=== PATIENT | female | born 1950 | race Caucasian/White ===

== ENCOUNTER 2019-10-17 22:14 | Inpatient (IN) | payer MEDICARE, MEDICAID ==
[~2019-10-17] VITALS: Ht 157.5 cm; Wt 49.9 kg
[2019-10-17] MEDS ORDERED: methylPREDNISolone SOD SUCC 125 MG/2 ML IV ONE (22:30)
[2019-10-17] MEDS ORDERED: ALBUTEROL/IPRATROPIUM 2.5MG/0.5MG, 3 ML NPPB PRN (22:30)
[2019-10-17] MEDS ORDERED: ALBUTEROL/IPRATROPIUM 2.5MG/0.5MG, 3 ML NPPB ONE (22:30)
[2019-10-17] MEDS ORDERED: ALBUTEROL/IPRATROPIUM 2.5MG/0.5MG, 3 ML ONE (22:58)
[2019-10-17] MEDS ORDERED: PLEASE ENTER ALLERGIES MC SCH (23:00)
[2019-10-17] MEDS ORDERED: methylPREDNISolone SOD SUCC 125 MG/2 ML ONE (23:09)
--- NOTE | 2019-10-17 23:32 | NUR ---
PRIOR TO HEAD OF MUSIC IV BLEW WHILE FLUSHING. IV REMOVED WITH TIP INTACT. 3 FAILED IV ATTEMPTS. WILL CONTINUE TO WORK ON IV ACCESS.
[2019-10-17 23:52] LABS: BASOPHILS # (AUTO) 0.07 x10^3/uL (0-0.1); BASOPHILS % (AUTO) 1 % (0-1); EOSINOPHILS # (AUTO) 0.15 x10^3/uL (0-0.4); EOSINOPHILS % (AUTO) 1 % (1-7); LYMPHOCYTES # (AUTO) 0.68 x10^3/uL (1-3.4); LYMPHOCYTES % (AUTO) 6 % (22-44); MD NO; MEAN CORPUSCULAR HEMOGLOBIN 31.1 pg (27.0-34.8); MEAN CORPUSCULAR HGB CONC 32.3 g/dL (32.4-35.8); MEAN CORPUSCULAR VOLUME 96.3 fL (80-100); MEAN PLATELET VOLUME 9.4 fL (7.4-10.4); MONOCYTES # (AUTO) 0.76 x10^3/uL (0.2-0.8); MONOCYTES % (AUTO) 7 % (2-9); NEUTROPHILS # (AUTO) 10.02 x10^3/uL (1.8-6.8); NEUTROPHILS % (AUTO) 86 % (42-75); PLATELET COUNT 236 x10^3/uL (130-400); RED BLOOD COUNT 4.17 x10^6/uL (3.82-5.3); RED CELL DISTRIBUTION WIDTH 13.4 % (9.6-15.2)
[2019-10-18] LABS: ALBUMIN 3.7 g/dL (3.4-5.0); CALCIUM 9.4 mg/dL (8.5-10.1); CREATININE 0.48 mg/dL (0.55-1.02)
[2019-10-18 00:05] LABS: TROPONIN I < 0.015 ng/mL (0.000-0.045)
[2019-10-18 00:12] LABS: ANION GAP 6 mmol/L (5-15); CHLORIDE 93 mmol/L (98-107)
[2019-10-18] MEDS ORDERED: DOXYCYCLINE 100 MG in DEXTROSE 5% 250 ML IV ONE (01:30)
--- NOTE | 2019-10-18 01:30 | NUR ---
REPORT GIVEN TO ELISEO ON 4N.
[2019-10-18] MEDS ORDERED: LIDODERM 5% PATCH TD PRN (02:00)
[2019-10-18] MEDS ORDERED: ONDANSETRON ODT 4 MG PO PRN (02:00)
[2019-10-18] MEDS ORDERED: DOCUSATE 100 MG CAPSULE PO PRN (02:00)
[2019-10-18] MEDS: TEMAZEPAM 15 MG CAPSULE PO PRN ×2 (02:08→23:36)
[2019-10-18] MEDS: ENOXAPARIN 30 MG/0.3 ML SQ SCH (02:09)
[2019-10-18] MEDS: methylPREDNISolone SOD SUCC 40 MG/ML IVPush SCH ×4 (06:05→23:28)
[2019-10-18 06:33] VITALS: BP 93/60
[2019-10-18] MEDS: ALBUTEROL/IPRATROPIUM 2.5MG/0.5MG, 3 ML NPPB SCH ×4 (07:45→20:04)
[2019-10-18 08:33] LABS: MEAN CORPUSCULAR HGB CONC 32.1 g/dL (32.4-35.8); MEAN CORPUSCULAR VOLUME 96.6 fL (80-100); MEAN PLATELET VOLUME 9.6 fL (7.4-10.4); PLATELET COUNT 240 x10^3/uL (130-400); RED BLOOD COUNT 4.28 x10^6/uL (3.82-5.3); RED CELL DISTRIBUTION WIDTH 13.4 % (9.6-15.2)
[2019-10-18 08:41] LABS: ANION GAP 2 mmol/L (5-15); CALCIUM 9.1 mg/dL (8.5-10.1); CHLORIDE 96 mmol/L (98-107)
[2019-10-18 08:43] LABS: CREATININE 0.48 mg/dL (0.55-1.02)
[2019-10-18 08:50] LABS: BASOPHILS # (AUTO) 0.01 x10^3/uL (0-0.1); BASOPHILS % (AUTO) 0 % (0-1); EOSINOPHILS % (AUTO) 0 % (1-7); LYMPHOCYTES # (AUTO) 0.24 x10^3/uL (1-3.4); LYMPHOCYTES % (AUTO) 5 % (22-44); MD SCAN; MONOCYTES # (AUTO) 0.03 x10^3/uL (0.2-0.8); MONOCYTES % (AUTO) 1 % (2-9); NEUTROPHILS # (AUTO) 4.27 x10^3/uL (1.8-6.8); NEUTROPHILS % (AUTO) 94 % (42-75)
[2019-10-18] MEDS ORDERED: BENZONATATE 100 MG CAPSULE PO SCH (09:00)
[2019-10-18 13:35] VITALS: BP 106/73
[2019-10-18] MEDS: DOXYCYCLINE 100 MG in DEXTROSE 5% 250 ML IV SCH (13:37)
[2019-10-18] MEDS: GUAIFENESIN 200 MG TABLET PO SCH ×2 (17:53→23:28)
[2019-10-18 18:50] VITALS: BP 112/73
[2019-10-19 00:52] VITALS: BP 107/72
[2019-10-19] MEDS: ENOXAPARIN 30 MG/0.3 ML SQ SCH (01:43)
[2019-10-19] MEDS: DOXYCYCLINE 100 MG in DEXTROSE 5% 250 ML IV SCH ×3 (01:43→18:05)
[2019-10-19 04:53] LABS: BASOPHILS % (AUTO) 0 % (0-1); EOSINOPHILS # (AUTO) 0.03 x10^3/uL (0-0.4); EOSINOPHILS % (AUTO) 1 % (1-7); LYMPHOCYTES # (AUTO) 0.33 x10^3/uL (1-3.4); LYMPHOCYTES % (AUTO) 5 % (22-44); MD NO; MEAN CORPUSCULAR HEMOGLOBIN 30.9 pg (27.0-34.8); MEAN CORPUSCULAR HGB CONC 32.1 g/dL (32.4-35.8); MEAN CORPUSCULAR VOLUME 96.1 fL (80-100); MEAN PLATELET VOLUME 9.6 fL (7.4-10.4); MONOCYTES # (AUTO) 0.25 x10^3/uL (0.2-0.8); MONOCYTES % (AUTO) 4 % (2-9); NEUTROPHILS # (AUTO) 6.22 x10^3/uL (1.8-6.8); NEUTROPHILS % (AUTO) 91 % (42-75); PLATELET COUNT 233 x10^3/uL (130-400); RED BLOOD COUNT 3.81 x10^6/uL (3.82-5.3); RED CELL DISTRIBUTION WIDTH 13.6 % (9.6-15.2)
[2019-10-19 05:02] LABS: ANION GAP 2 mmol/L (5-15); CALCIUM 8.6 mg/dL (8.5-10.1); CHLORIDE 96 mmol/L (98-107)
[2019-10-19 05:03] LABS: CREATININE 0.49 mg/dL (0.55-1.02)
[2019-10-19] MEDS: methylPREDNISolone SOD SUCC 40 MG/ML IVPush SCH ×3 (05:47→17:19)
[2019-10-19] MEDS: GUAIFENESIN 200 MG TABLET PO SCH ×4 (05:47→21:11)
[2019-10-19 06:30] VITALS: BP 106/71
[2019-10-19] MEDS: ALBUTEROL/IPRATROPIUM 2.5MG/0.5MG, 3 ML NPPB SCH ×4 (06:35→18:50)
[2019-10-19 13:07] VITALS: BP 110/77
[2019-10-19] MEDS: ACETAMINOPHEN 325 MG TABLET PO PRN ×2 (13:37→21:12)
[2019-10-19] MEDS ORDERED: CEFTRIAXONE PMX 1GM/50ML 50 ML IV SCH (16:30)
[2019-10-19] MEDS: ALBUTEROL/IPRATROPIUM 2.5MG/0.5MG, 3 ML NPPB PRN ×2 (19:47→23:59)
[2019-10-19 20:23] VITALS: BP 116/83
[2019-10-19] MEDS: ENOXAPARIN 40 MG/0.4 ML SQ SCH (21:11)
[2019-10-20] MEDS: methylPREDNISolone SOD SUCC 40 MG/ML IVPush SCH ×4 (00:12→17:02)
[2019-10-20 00:15] VITALS: BP 105/71
[2019-10-20] MEDS: DOXYCYCLINE 100 MG in DEXTROSE 5% 250 ML IV SCH ×2 (02:17→14:24)
[2019-10-20] MEDS: ACETAMINOPHEN 325 MG TABLET PO PRN (02:18)
[2019-10-20] MEDS: ALBUTEROL/IPRATROPIUM 2.5MG/0.5MG, 3 ML NPPB SCH ×5 (04:43→18:43)
[2019-10-20 05:09] LABS: BASOPHILS % (AUTO) 0 % (0-1); EOSINOPHILS # (AUTO) 0.03 x10^3/uL (0-0.4); EOSINOPHILS % (AUTO) 0 % (1-7); LYMPHOCYTES % (AUTO) 3 % (22-44); MD NO; MEAN CORPUSCULAR HEMOGLOBIN 30.9 pg (27.0-34.8); MEAN CORPUSCULAR HGB CONC 31.9 g/dL (32.4-35.8); MEAN CORPUSCULAR VOLUME 96.6 fL (80-100); MEAN PLATELET VOLUME 9.2 fL (7.4-10.4); MONOCYTES # (AUTO) 0.25 x10^3/uL (0.2-0.8); MONOCYTES % (AUTO) 4 % (2-9); NEUTROPHILS # (AUTO) 6.65 x10^3/uL (1.8-6.8); NEUTROPHILS % (AUTO) 93 % (42-75); PLATELET COUNT 225 x10^3/uL (130-400); RED BLOOD COUNT 3.88 x10^6/uL (3.82-5.3); RED CELL DISTRIBUTION WIDTH 13.6 % (9.6-15.2)
[2019-10-20 05:18] LABS: CHLORIDE 98 mmol/L (98-107)
[2019-10-20 05:22] LABS: ALBUMIN 3.4 g/dL (3.4-5.0); ANION GAP 2 mmol/L (5-15); CALCIUM 8.9 mg/dL (8.5-10.1)
[2019-10-20] MEDS: GUAIFENESIN 200 MG TABLET PO SCH ×4 (05:58→20:43)
[2019-10-20 07:51] VITALS: BP 107/74
[2019-10-20] MEDS ORDERED: FUROSEMIDE 20 MG/2 ML IV ONE (11:00)
[2019-10-20] MEDS ORDERED: OMNIPAQUE 350 MG/ML, 100ML BOTTLE ONE (11:10)
[2019-10-20] MEDS: LORazepam 0.5MG TABLET PO PRN ×2 (11:28→18:33)
[2019-10-20 12:42] VITALS: BP 121/83
[2019-10-20 20:00] VITALS: BP 124/74
[2019-10-20] MEDS: TEMAZEPAM 15 MG CAPSULE PO PRN (20:43)
[2019-10-20] MEDS: ENOXAPARIN 40 MG/0.4 ML SQ SCH (20:43)
[2019-10-21] MEDS: methylPREDNISolone SOD SUCC 40 MG/ML IVPush SCH ×4 (00:08→17:14)
[2019-10-21 00:10] VITALS: BP 109/59
[2019-10-21] MEDS: DOXYCYCLINE 100 MG in DEXTROSE 5% 250 ML IV SCH ×2 (02:22→15:18)
[2019-10-21] MEDS: GUAIFENESIN 200 MG TABLET PO SCH ×4 (05:34→21:22)
[2019-10-21] MEDS: ALBUTEROL/IPRATROPIUM 2.5MG/0.5MG, 3 ML NPPB SCH ×4 (07:20→19:08)
[2019-10-21 07:57] LABS: MEAN CORPUSCULAR HEMOGLOBIN 31.1 pg (27.0-34.8); MEAN CORPUSCULAR HGB CONC 31.9 g/dL (32.4-35.8); MEAN CORPUSCULAR VOLUME 97.3 fL (80-100); MEAN PLATELET VOLUME 9.6 fL (7.4-10.4); PLATELET COUNT 221 x10^3/uL (130-400); RED BLOOD COUNT 4.02 x10^6/uL (3.82-5.3); RED CELL DISTRIBUTION WIDTH 13.8 % (9.6-15.2)
[2019-10-21 08:03] LABS: ANION GAP 2 mmol/L (5-15); CALCIUM 8.7 mg/dL (8.5-10.1); CHLORIDE 97 mmol/L (98-107); CREATININE 0.45 mg/dL (0.55-1.02)
[2019-10-21 08:59] VITALS: BP 114/82
[2019-10-21 09:06] LABS: BASOPHILS # (AUTO) 0.01 x10^3/uL (0-0.1); BASOPHILS % (AUTO) 0 % (0-1); EOSINOPHILS % (AUTO) 0 % (1-7); LYMPHOCYTES # (AUTO) 0.23 x10^3/uL (1-3.4); LYMPHOCYTES % (AUTO) 3 % (22-44); MD SCAN; MONOCYTES # (AUTO) 0.25 x10^3/uL (0.2-0.8); MONOCYTES % (AUTO) 3 % (2-9); NEUTROPHILS # (AUTO) 6.96 x10^3/uL (1.8-6.8); NEUTROPHILS % (AUTO) 93 % (42-75)
[2019-10-21] MEDS: LORazepam 0.5MG TABLET PO PRN (13:47)
[2019-10-21 15:54] VITALS: BP 118/79
[2019-10-21] MEDS: BUDESONIDE 0.5 MG/2 ML INHA INH SCH (19:08)
[2019-10-21 20:00] VITALS: BP 112/74
[2019-10-21] MEDS: ENOXAPARIN 40 MG/0.4 ML SQ SCH (21:22)
[2019-10-21] MEDS: TEMAZEPAM 15 MG CAPSULE PO PRN (23:28)
[2019-10-22] MEDS ORDERED: methylPREDNISolone SOD SUCC 40 MG/ML IVPush SCH
[2019-10-22] MEDS: TEMAZEPAM 15 MG CAPSULE PO PRN (01:07)
[2019-10-22 02:50] VITALS: BP 104/57
[2019-10-22] MEDS: DOXYCYCLINE 100 MG in DEXTROSE 5% 250 ML IV SCH ×2 (02:53→14:37)
[2019-10-22] MEDS: GUAIFENESIN 200 MG TABLET PO SCH ×4 (05:42→22:59)
[2019-10-22 08:15] VITALS: BP 119/83
[2019-10-22] MEDS: ALBUTEROL/IPRATROPIUM 2.5MG/0.5MG, 3 ML NPPB SCH ×4 (09:00→16:40)
[2019-10-22] MEDS: BUDESONIDE 0.5 MG/2 ML INHA INH SCH ×2 (09:00→21:00)
[2019-10-22] MEDS: methylPREDNISolone SOD SUCC 40 MG/ML IVPush SCH ×3 (10:34→23:00)
[2019-10-22 14:52] VITALS: BP 115/74
[2019-10-22 19:59] VITALS: BP 150/85
[2019-10-22] MEDS: LORazepam 0.5MG TABLET PO PRN (20:47)
[2019-10-22] MEDS: ENOXAPARIN 40 MG/0.4 ML SQ SCH (22:59)
[2019-10-23 00:52] VITALS: BP 112/76
[2019-10-23] MEDS: TEMAZEPAM 15 MG CAPSULE PO PRN ×2 (02:01→23:32)
[2019-10-23] MEDS: DOXYCYCLINE 100 MG in DEXTROSE 5% 250 ML IV SCH (02:12)
[2019-10-23] MEDS: methylPREDNISolone SOD SUCC 40 MG/ML IVPush SCH ×3 (03:20→16:05)
[2019-10-23] MEDS: GUAIFENESIN 200 MG TABLET PO SCH ×4 (05:58→21:37)
[2019-10-23] MEDS: BUDESONIDE 0.5 MG/2 ML INHA INH SCH ×2 (06:55→20:00)
[2019-10-23] MEDS: ALBUTEROL/IPRATROPIUM 2.5MG/0.5MG, 3 ML NPPB SCH ×4 (06:55→20:00)
[2019-10-23 08:04] VITALS: BP 111/74
[2019-10-23 12:55] VITALS: BP 144/92
[2019-10-23] MEDS: LORazepam 0.5MG TABLET PO PRN (18:24)
[2019-10-23 19:04] VITALS: BP 130/73
[2019-10-23] MEDS: ENOXAPARIN 40 MG/0.4 ML SQ SCH (21:37)
[2019-10-24] MEDS: TEMAZEPAM 15 MG CAPSULE PO PRN (01:07)
[2019-10-24] MEDS: methylPREDNISolone SOD SUCC 40 MG/ML IVPush SCH ×2 (01:07→09:07)
[2019-10-24 01:12] VITALS: BP 98/62
[2019-10-24] MEDS: GUAIFENESIN 200 MG TABLET PO SCH ×2 (05:17→11:40)
[2019-10-24] MEDS: BUDESONIDE 0.5 MG/2 ML INHA INH SCH (07:15)
[2019-10-24] MEDS: ALBUTEROL/IPRATROPIUM 2.5MG/0.5MG, 3 ML NPPB SCH ×2 (07:15→10:50)
[2019-10-24 09:11] VITALS: BP 120/82
[2019-10-24] MEDS ORDERED: METH4TAB2 PO (12:11)
[2019-10-24] MEDS ORDERED: UMEC62.5 INH (12:11)
[2019-10-24] MEDS ORDERED: ALBU90AE INH (12:11)
[2019-10-24 13:07] VITALS: BP 124/81
[2019-10-24] MEDS: LORazepam 0.5MG TABLET PO PRN (13:35)
== END 2019-10-24 16:12 | disposition home health service (06) | DRG 189 ==
LOC: ED 23:59 → EDIP 10-18 01:04 → 4NE 10-18 01:50 → 3N 10-19 13:02 → DCLOUNGE 10-24 15:49
PROVIDERS: ADMIT Family Medicine; ATTEND Hospitalist
DX: J96.21 Acute and chronic respiratory failure with hypoxia (principal); E43 Unspecified severe protein-calorie malnutrition; J44.0 Chronic obstructive pulmonary disease with (acute) lower respiratory infection; Z68.1 Body mass index [BMI] 19.9 or less, adult; J44.1 Chronic obstructive pulmonary disease with (acute) exacerbation; J96.10 Chronic respiratory failure, unspecified whether with hypoxia or hypercapnia; J20.9 Acute bronchitis, unspecified; E89.0 Postprocedural hypothyroidism; Z82.49 Family history of ischemic heart disease and other diseases of the circulatory system; Z87.891 Personal history of nicotine dependence; Z99.81 Dependence on supplemental oxygen; R00.0 Tachycardia, unspecified
CPT/HCPCS: 36415; 71045; 71275; 80048; 82040; 83735; 83880; 84100; 84484; 85025; 93005; 93306; 94640; 96374; G0378; J0696; J1650; J7060; J7620; J7626; Q9967; J1940; J2920; J2930

== ENCOUNTER 2020-02-27 10:32 | Observation (INO) | payer MEDICARE, MEDICAID ==
[~2020-02-27] VITALS: Ht 162.6 cm; Wt 47.4 kg
[~2020-02-27 10:32] MED LIST: ALBU90AE INH; METH4TAB2 PO; UMEC62.5 INH
[2020-02-27 11:27] LABS: BASOPHILS # (AUTO) 0.04 x10^3/uL (0-0.1); BASOPHILS % (AUTO) 0 % (0-1); EOSINOPHILS # (AUTO) 0.13 x10^3/uL (0-0.4); EOSINOPHILS % (AUTO) 1 % (1-7); LYMPHOCYTES # (AUTO) 0.71 x10^3/uL (1-3.4); LYMPHOCYTES % (AUTO) 6 % (22-44); MD NO; MEAN CORPUSCULAR HGB CONC 31.9 g/dL (32.4-35.8); MEAN CORPUSCULAR VOLUME 97.1 fL (80-100); MEAN PLATELET VOLUME 8.9 fL (7.4-10.4); MONOCYTES # (AUTO) 0.56 x10^3/uL (0.2-0.8); MONOCYTES % (AUTO) 5 % (2-9); NEUTROPHILS # (AUTO) 10.02 x10^3/uL (1.8-6.8); NEUTROPHILS % (AUTO) 88 % (42-75); PLATELET COUNT 220 x10^3/uL (130-400); RED BLOOD COUNT 4.34 x10^6/uL (3.82-5.3); RED CELL DISTRIBUTION WIDTH 13.9 % (9.6-15.2)
--- NOTE | 2020-02-27 11:27 | NUR ---
SOB FOR 2 DAYS BUT DISTRESSED THIS MORNING. STATES BETTER AFTER RECEIVING TX'S ENROUTE
[2020-02-27 12:11] LABS: ALBUMIN 3.7 g/dL (3.4-5.0); CALCIUM 9.1 mg/dL (8.5-10.1); CHLORIDE 97 mmol/L (98-107)
[2020-02-27 12:14] LABS: TROPONIN I 0.037 ng/mL (0.000-0.045)
[2020-02-27 12:21] LABS: ANION GAP 4 mmol/L (5-15)
[2020-02-27] MEDS ORDERED: LEVO100T5 PO (13:01)
--- NOTE | 2020-02-27 13:03 | NUR ---
PT AWARE OF INTENTION TO ADMIT. NO SOB AT THIS TIME. CONTINUE TO MONITOR.
[2020-02-27] MEDS ORDERED: ALBUTEROL SULFATE HOMEINH PRN (14:00)
[2020-02-27] MEDS ORDERED: LABETALOL 5MG/ML, 20ML IVPush PRN (14:00)
[2020-02-27] MEDS ORDERED: TRAZODONE 50MG TABLET PO PRN (14:00)
[2020-02-27] MEDS ORDERED: ONDANSETRON 2MG/ML, 2ML IVPush PRN (14:00)
[2020-02-27] MEDS ORDERED: DOCUSATE 100 MG CAPSULE PO PRN (14:00)
--- NOTE | 2020-02-27 14:00 | NUR ---
1400 SOLUMDEROL DOSE NOT GIVEN BECAUSE PT RECEIVED DOSE ENROUTE FROM [employer] ENGINEERING MANAGER
[2020-02-27 14:03] LABS: FREE T4 (FREE THYROXINE) 1.05 ng/dL (0.76-1.46)
[2020-02-27] MEDS ORDERED: ALBUTEROL/IPRATROPIUM 2.5MG/0.5MG, 3 ML ONE (14:31)
[2020-02-27] MEDS: ALBUTEROL/IPRATROPIUM 2.5MG/0.5MG, 3 ML NPPB SCH ×2 (14:35→21:00)
--- NOTE | 2020-02-27 14:56 | NUR ---
KENROY PARSONS TELEOE NUMBER [phone]
[2020-02-27] MEDS ORDERED: ALBUTEROL/IPRATROPIUM 2.5MG/0.5MG, 3 ML NPPB SCH (15:00)
--- NOTE | 2020-02-27 15:21 | NUR ---
RESTING WITH EYES CLOSED. NO COMPLAINTS. AWARE THAT ROOM ASSIGNMENT HAS BEEN MADE. REPORT TO AGATA PEACE PT TO BE TRANSPORTED.
--- NOTE | 2020-02-27 15:30 | NUR ---
REPORT TO AGATA PEACE PT TO BE TRANSPORTED TO FLOOR.
--- NOTE | 2020-02-27 15:37 | NUR ---
REPORT TO SIS GHOTRA
[2020-02-27] MEDS: methylPREDNISolone SOD SUCC 40 MG/ML IV SCH ×2 (15:38→22:00)
[2020-02-27] MEDS: ENOXAPARIN 40 MG/0.4 ML SQ SCH (17:54)
[2020-02-27 17:56] VITALS: BP 102/68
[2020-02-27 18:41] VITALS: BP 107/74
[2020-02-27] MEDS: BUDESONIDE 0.5 MG/2 ML INHA INH SCH (21:00)
[2020-02-27] MEDS: ACETAMINOPHEN 325 MG TABLET PO PRN (21:59)
[2020-02-27 22:06] LABS: MICROSCOPIC AUTO
[2020-02-28 01:27] VITALS: BP 93/57
[2020-02-28] MEDS: ALBUTEROL/IPRATROPIUM 2.5MG/0.5MG, 3 ML NPPB SCH ×3 (02:15→15:30)
[2020-02-28 05:19] LABS: ALBUMIN 3.2 g/dL (3.4-5.0); ANION GAP 4 mmol/L (5-15); CALCIUM 8.9 mg/dL (8.5-10.1); CHLORIDE 96 mmol/L (98-107)
[2020-02-28 05:20] LABS: BASOPHILS % (AUTO) 0 % (0-1); EOSINOPHILS % (AUTO) 0 % (1-7); LYMPHOCYTES % (AUTO) 5 % (22-44); MD NO; MEAN CORPUSCULAR HEMOGLOBIN 30.5 pg (27.0-34.8); MEAN CORPUSCULAR HGB CONC 31.6 g/dL (32.4-35.8); MEAN CORPUSCULAR VOLUME 96.5 fL (80-100); MEAN PLATELET VOLUME 9.5 fL (7.4-10.4); MONOCYTES # (AUTO) 0.15 x10^3/uL (0.2-0.8); MONOCYTES % (AUTO) 2 % (2-9); NEUTROPHILS # (AUTO) 6.21 x10^3/uL (1.8-6.8); NEUTROPHILS % (AUTO) 93 % (42-75); PLATELET COUNT 228 x10^3/uL (130-400); RED BLOOD COUNT 4.03 x10^6/uL (3.82-5.3); RED CELL DISTRIBUTION WIDTH 13.9 % (9.6-15.2)
[2020-02-28 05:23] LABS: ALANINE AMINOTRANSFERASE 15 U/L (12-78); ALKALINE PHOSPHATASE 68 U/L (45-117); BILIRUBIN,TOTAL 0.3 mg/dL (0.2-1.0); CREATININE 0.52 mg/dL (0.55-1.02); TOTAL PROTEIN 7.1 g/dL (6.4-8.2)
[2020-02-28] MEDS: methylPREDNISolone SOD SUCC 40 MG/ML IV SCH ×2 (05:31→14:32)
[2020-02-28] MEDS ORDERED: LEVOTHYROXINE 100 MCG TABLET PO SCH (06:00)
[2020-02-28 07:36] VITALS: BP 102/68
[2020-02-28] MEDS: BUDESONIDE 0.5 MG/2 ML INHA INH SCH (08:50)
[2020-02-28] MEDS ORDERED: UMECLIDINIUM BROMIDE HOMEINH SCH (09:00)
[2020-02-28] MEDS: ACETAMINOPHEN 325 MG TABLET PO PRN ×2 (09:16→14:32)
[2020-02-28 14:37] VITALS: BP 111/73
[2020-02-28] MEDS ORDERED: UMEC62.5 INH (15:11)
[2020-02-28] MEDS ORDERED: ALBU90AE INH (15:11)
[2020-02-28] MEDS ORDERED: PRED20TA PO (15:11)
[2020-02-28] MEDS ORDERED: LEVO100T5 PO (15:11)
[2020-02-28] MEDS: ENOXAPARIN 40 MG/0.4 ML SQ SCH (18:00)
[2020-02-28 18:23] VITALS: BP 113/77
== END 2020-02-28 18:46 | disposition home or self-care (01) ==
LOC: ED 11:35 → EDIP 12:56 → INTOOBSV 12:56 → 3N 17:42 → OBSVTOIN 02-28 14:11 → INTOOBSV 02-28 14:11
PROVIDERS: ADMIT Hospitalist; ATTEND Hospitalist
DX: J44.1 Chronic obstructive pulmonary disease with (acute) exacerbation (principal); J96.11 Chronic respiratory failure with hypoxia; E87.3 Alkalosis; E03.9 Hypothyroidism, unspecified; R63.4 Abnormal weight loss; Z87.891 Personal history of nicotine dependence; Z79.899 Other long term (current) drug therapy
CPT/HCPCS: 36415; 71045; 80048; 80053; 81001; 82040; 83735; 84100; 84439; 84484; 85025; 93005; 94640; 96372; 96374; 96376; 99285; G0378; J1650; J2920; J7626

== ENCOUNTER 2020-06-23 23:36 | Inpatient (IN) | payer MEDICARE, MEDICAID ==
[~2020-06-23] VITALS: Ht 157.5 cm; Wt 54.6 kg
[~2020-06-23 23:36] MED LIST changes: +ACID1TAB7 PO; +AMOX-291 PO; +ASPI-496 PO; +ATOR40TA78 PO; +DOXY100T PO; +LEVO100T5 PO; +PRED20TA PO
--- NOTE | 2020-06-23 23:37 | NUR ---
pt BIB [facility] after both home O2 concentrators in trailer went put. [facility] reports pt was found 82% RA. Placed on NC enroute and given albuterol and sats increased to 98%. Pt currently in decon room due to bed bugs infestation at home. Pt hx of COPD.
[2020-06-23] MEDS ORDERED: MELATONIN OTC PO (23:56)
[2020-06-24] MEDS ORDERED: SODIUM CHLORIDE FLUSH 10ML SYR IVF ONE
[2020-06-24] MEDS ORDERED: ALBUTEROL/IPRATROPIUM 2.5MG/0.5MG, 3 ML NPPB ONE
[2020-06-24] MEDS ORDERED: methylPREDNISolone SOD SUCC 125 MG/2 ML ONE
[2020-06-24] MEDS ORDERED: ALBUTEROL/IPRATROPIUM 2.5MG/0.5MG, 3 ML ONE
[2020-06-24] MEDS ORDERED: methylPREDNISolone SOD SUCC 125 MG/2 ML IV ONE
--- NOTE | 2020-06-24 00:29 | NUR ---
PT IV INFILTRATED. THIS RN PLACED NEW IV, PT MEDICATED PER DEC, LAYING ON GURNEY, DIFFICULTY BREATHING NOTED. PT SITTING UP IN GURNEY, 3-5 WORD SENTENCES SOME SOB NOTED. PLACED ON SPO2/BP/ECG MONITORING. APPEARS COMFORTABLE, GIVEN BLANKETS FOR COMFORT, WCTM. WAITING FOR TEST RESULTS.
[2020-06-24 00:35] LABS: BASOPHILS # (AUTO) 0.04 x10^3/uL (0-0.1); BASOPHILS % (AUTO) 0 % (0-1); EOSINOPHILS # (AUTO) 0.13 x10^3/uL (0-0.4); EOSINOPHILS % (AUTO) 1 % (1-7); LYMPHOCYTES # (AUTO) 0.99 x10^3/uL (1-3.4); LYMPHOCYTES % (AUTO) 8 % (22-44); MD NO; MEAN CORPUSCULAR HEMOGLOBIN 30.7 pg (27.0-34.8); MEAN CORPUSCULAR HGB CONC 31.3 g/dL (32.4-35.8); MEAN PLATELET VOLUME 9.2 fL (7.4-10.4); MONOCYTES # (AUTO) 0.81 x10^3/uL (0.2-0.8); MONOCYTES % (AUTO) 7 % (2-9); NEUTROPHILS # (AUTO) 10.02 x10^3/uL (1.8-6.8); NEUTROPHILS % (AUTO) 84 % (42-75); PLATELET COUNT 202 x10^3/uL (130-400); RED BLOOD COUNT 4.22 x10^6/uL (3.82-5.3); RED CELL DISTRIBUTION WIDTH 13.9 % (9.6-15.2)
[2020-06-24 01:22] LABS: ALBUMIN 3.5 g/dL (3.4-5.0); ANION GAP 5 mmol/L (5-15); CALCIUM 9.1 mg/dL (8.5-10.1); CHLORIDE 98 mmol/L (98-107); CREATININE 0.51 mg/dL (0.55-1.02)
[2020-06-24 01:26] LABS: TROPONIN I < 0.015 ng/mL (0.000-0.045)
[2020-06-24] MEDS ORDERED: ACETAMINOPHEN 325 MG TABLET PO PRN ×2 (02:00→07:30)
[2020-06-24] MEDS ORDERED: PROMETHAZINE 25 MG/ML, 1ML IM PRN (02:00)
[2020-06-24] MEDS ORDERED: ENOXAPARIN 40 MG/0.4 ML SQ SCH (02:00)
[2020-06-24] MEDS ORDERED: ENALAPRILAT 1.25 MG/ML, 2ML IVPush PRN (02:00)
--- NOTE | 2020-06-24 02:05 | NUR ---
pt provided crackers for comfort, nad, resting in gurney, waiting for admit bed, wctm.
--- NOTE | 2020-06-24 03:01 | NUR ---
REPORT CALLED TO FINA GHOTRA, NO CHANGE IN PT CONDITION, PT READY TO TRANSFER TO FLOOR. TM
[2020-06-24 03:44] VITALS: BP 116/75
[2020-06-24] MEDS: ALBUTEROL HFA 90 MCG/SPRAY INH SCH ×4 (05:39→20:25)
[2020-06-24] MEDS: HEPARIN 5,000 UNITS/ML, 1ML SQ SCH ×2 (08:30→20:26)
[2020-06-24] MEDS: SODIUM CHLORIDE 0.9% 1,000 ML IV SCH (08:42)
[2020-06-24 09:07] VITALS: BP 113/73
[2020-06-24 13:41] VITALS: BP 122/79
[2020-06-24 18:32] VITALS: BP 128/84
[2020-06-24] MEDS: ALBUTEROL HFA 90 MCG/SPRAY INH PRN ×2 (19:01→23:05)
[2020-06-25 00:01] VITALS: BP 109/77
[2020-06-25] MEDS: MELATONIN 5 MG TABLET PO PRN ×2 (02:14→22:20)
[2020-06-25] MEDS: ALBUTEROL HFA 90 MCG/SPRAY INH PRN ×3 (03:03→19:00)
[2020-06-25] MEDS: SODIUM CHLORIDE 0.9% 1,000 ML IV SCH ×2 (03:09→22:20)
[2020-06-25] MEDS: ALBUTEROL HFA 90 MCG/SPRAY INH SCH ×4 (06:10→22:20)
[2020-06-25 07:02] VITALS: BP 93/57
[2020-06-25 08:22] LABS: ANION GAP 3 mmol/L (5-15); CALCIUM 8.5 mg/dL (8.5-10.1); CHLORIDE 101 mmol/L (98-107)
[2020-06-25 08:24] LABS: CREATININE 0.33 mg/dL (0.55-1.02)
[2020-06-25 08:39] LABS: BASOPHILS # (AUTO) 0.03 x10^3/uL (0-0.1); BASOPHILS % (AUTO) 0 % (0-1); EOSINOPHILS % (AUTO) 2 % (1-7); LYMPHOCYTES # (AUTO) 0.96 x10^3/uL (1-3.4); LYMPHOCYTES % (AUTO) 14 % (22-44); MD NO; MEAN CORPUSCULAR HEMOGLOBIN 30.7 pg (27.0-34.8); MEAN CORPUSCULAR HGB CONC 31.1 g/dL (32.4-35.8); MEAN PLATELET VOLUME 9.6 fL (7.4-10.4); MONOCYTES % (AUTO) 10 % (2-9); NEUTROPHILS # (AUTO) 5.11 x10^3/uL (1.8-6.8); NEUTROPHILS % (AUTO) 74 % (42-75); PLATELET COUNT 173 x10^3/uL (130-400); RED BLOOD COUNT 3.61 x10^6/uL (3.82-5.3); RED CELL DISTRIBUTION WIDTH 14.2 % (9.6-15.2)
[2020-06-25] MEDS: HEPARIN 5,000 UNITS/ML, 1ML SQ SCH ×2 (08:41→19:21)
[2020-06-25 12:01] VITALS: BP 110/73
[2020-06-25] MEDS: CEFTRIAXONE PMX 1GM/50ML 50 ML IV SCH (12:25)
[2020-06-26 01:27] VITALS: BP 165/95
[2020-06-26] MEDS: ALBUTEROL HFA 90 MCG/SPRAY INH PRN ×2 (02:15→07:00)
[2020-06-26 02:20] VITALS: BP 132/78
[2020-06-26] MEDS: ALBUTEROL HFA 90 MCG/SPRAY INH SCH ×4 (06:12→20:10)
[2020-06-26 06:28] LABS: BASOPHILS # (AUTO) 0.02 x10^3/uL (0-0.1); BASOPHILS % (AUTO) 0 % (0-1); EOSINOPHILS # (AUTO) 0.16 x10^3/uL (0-0.4); EOSINOPHILS % (AUTO) 3 % (1-7); LYMPHOCYTES # (AUTO) 0.97 x10^3/uL (1-3.4); LYMPHOCYTES % (AUTO) 16 % (22-44); MD NO; MEAN CORPUSCULAR HGB CONC 31.5 g/dL (32.4-35.8); MEAN PLATELET VOLUME 9.6 fL (7.4-10.4); MONOCYTES # (AUTO) 0.57 x10^3/uL (0.2-0.8); MONOCYTES % (AUTO) 9 % (2-9); NEUTROPHILS # (AUTO) 4.47 x10^3/uL (1.8-6.8); NEUTROPHILS % (AUTO) 72 % (42-75); PLATELET COUNT 174 x10^3/uL (130-400); RED BLOOD COUNT 4.08 x10^6/uL (3.82-5.3); RED CELL DISTRIBUTION WIDTH 13.8 % (9.6-15.2)
[2020-06-26 06:37] LABS: ANION GAP 2 mmol/L (5-15); CALCIUM 9.2 mg/dL (8.5-10.1); CHLORIDE 100 mmol/L (98-107)
[2020-06-26 06:41] LABS: CREATININE 0.35 mg/dL (0.55-1.02)
[2020-06-26 07:22] VITALS: BP 97/63
[2020-06-26] MEDS: HEPARIN 5,000 UNITS/ML, 1ML SQ SCH ×2 (08:20→19:32)
[2020-06-26] MEDS: TIOTROPIUM BROMIDE 18 MCG/INH INH SCH (10:00)
[2020-06-26] MEDS: FLUTICASONE/VILANTEROL 100-25MCG/INH INH SCH (12:00)
[2020-06-26 12:12] VITALS: BP 131/83
[2020-06-26] MEDS: CEFTRIAXONE PMX 1GM/50ML 50 ML IV SCH (16:32)
[2020-06-26 19:26] VITALS: BP 132/88
[2020-06-26] MEDS: SODIUM CHLORIDE 0.9% 1,000 ML IV SCH (19:33)
[2020-06-27 00:38] VITALS: BP 116/81
[2020-06-27] MEDS: ALBUTEROL HFA 90 MCG/SPRAY INH SCH ×4 (05:02→20:34)
[2020-06-27] MEDS: TIOTROPIUM BROMIDE 18 MCG/INH INH SCH (07:05)
[2020-06-27] MEDS: FLUTICASONE/VILANTEROL 100-25MCG/INH INH SCH (07:05)
[2020-06-27] MEDS: HEPARIN 5,000 UNITS/ML, 1ML SQ SCH ×2 (07:46→20:00)
[2020-06-27 07:58] VITALS: BP 106/75
[2020-06-27 13:17] VITALS: BP 109/75
[2020-06-27] MEDS: SODIUM CHLORIDE 0.9% 1,000 ML IV SCH (16:08)
[2020-06-27] MEDS: CEFTRIAXONE PMX 1GM/50ML 50 ML IV SCH (16:08)
[2020-06-27 20:03] VITALS: BP 102/69
[2020-06-27] MEDS: MELATONIN 5 MG TABLET PO PRN (23:31)
[2020-06-28] MEDS: ALBUTEROL HFA 90 MCG/SPRAY INH PRN (00:33)
[2020-06-28 00:34] VITALS: BP 97/68
[2020-06-28] MEDS: ALBUTEROL HFA 90 MCG/SPRAY INH SCH ×5 (04:54→19:14)
[2020-06-28 07:01] VITALS: BP 108/77
[2020-06-28] MEDS: FLUTICASONE/VILANTEROL 100-25MCG/INH INH SCH (07:05)
[2020-06-28] MEDS: TIOTROPIUM BROMIDE 18 MCG/INH INH SCH (07:05)
[2020-06-28] MEDS: methylPREDNISolone SOD SUCC 40 MG/ML IV SCH (09:15)
[2020-06-28] MEDS: HEPARIN 5,000 UNITS/ML, 1ML SQ SCH ×2 (09:16→21:03)
[2020-06-28 13:14] VITALS: BP 100/69
[2020-06-28] MEDS: AZITHROMYCIN 500 MG TABLET PO SCH (17:03)
[2020-06-28 19:01] VITALS: BP 107/71
[2020-06-29] MEDS: ALBUTEROL HFA 90 MCG/SPRAY INH PRN ×2 (00:18→04:00)
[2020-06-29] MEDS: MELATONIN 5 MG TABLET PO PRN (00:31)
[2020-06-29 00:47] VITALS: BP 93/61
[2020-06-29] MEDS: ALBUTEROL HFA 90 MCG/SPRAY INH SCH ×3 (06:00→15:00)
[2020-06-29] MEDS ORDERED: LEVOTHYROXINE 100 MCG TABLET PO SCH (06:00)
[2020-06-29 07:26] VITALS: BP 102/73
[2020-06-29] MEDS: AZITHROMYCIN 500 MG TABLET PO SCH (08:05)
[2020-06-29] MEDS: HEPARIN 5,000 UNITS/ML, 1ML SQ SCH (08:06)
[2020-06-29] MEDS: methylPREDNISolone SOD SUCC 40 MG/ML IV SCH (08:06)
[2020-06-29] MEDS: TIOTROPIUM BROMIDE 18 MCG/INH INH SCH (08:28)
[2020-06-29] MEDS: FLUTICASONE/VILANTEROL 100-25MCG/INH INH SCH (08:28)
[2020-06-29] MEDS ORDERED: TIOT18CA INH (12:01)
[2020-06-29] MEDS ORDERED: PRED20TA PO (12:01)
[2020-06-29] MEDS ORDERED: FLUT1BLS INH (12:01)
[2020-06-29] MEDS ORDERED: AZIT500T10 PO (12:01)
== END 2020-06-29 18:16 | disposition home or self-care (01) | DRG 189 ==
LOC: ED 06-24 02:20 → EDIP 06-24 02:21 → 3N 06-24 03:39 → OBSVTOIN 06-25 13:57
PROVIDERS: ADMIT Family Medicine; ATTEND Hospitalist
DX: J96.21 Acute and chronic respiratory failure with hypoxia (principal); J44.1 Chronic obstructive pulmonary disease with (acute) exacerbation; J96.22 Acute and chronic respiratory failure with hypercapnia; F17.210 Nicotine dependence, cigarettes, uncomplicated; B88.8 Other specified infestations; D72.829 Elevated white blood cell count, unspecified; E89.0 Postprocedural hypothyroidism; F41.9 Anxiety disorder, unspecified
CPT/HCPCS: 36415; 36600; 71045; 80048; 82040; 82803; 83880; 84439; 84443; 84484; 85025; 93005; 94640; 94664; 99406; G0378; J0696; J1644; J1650; J2920; J2930; J7030

== ENCOUNTER 2020-09-04 14:15 | Emergency (ER) | payer MEDICARE, MEDICAID ==
[~2020-09-04] VITALS: Ht 157.5 cm; Wt 50.0 kg
[~2020-09-04 14:15] MED LIST changes: +AZIT500T10 PO; +FLUT1BLS INH; +MELATONIN OTC PO; +TIOT18CA INH
--- NOTE | 2020-09-04 14:20 | NUR ---
pt BIB [facility] fom home to have O2 set up. per report, pt is on chronic O2 at 4L via NC at home and her insurance changed last week, the Oxygen company took all her equipment today and her son sent her here for more O2. pt has no physical c/o
--- NOTE | 2020-09-04 15:30 | NUR ---
meal tray delivered per ok from Dr. Nagel pt sitting up on [facility] in no apparent distress
--- NOTE | 2020-09-04 16:24 | NUR ---
tech at bedside to RA test for O2 pt has been assisted to BR via WC per request
--- NOTE | 2020-09-04 17:10 | NUR ---
no changes. pt sitting up on gurney in position of comfort watching TV. awaiting O2 delivery
--- NOTE | 2020-09-04 17:45 | NUR ---
pt has been assisted to BR and back to bed. tolerated fair pt still awaiting O2 delivery. per SW delivery is estimated in 2-4 hours. pt updated on POC
--- NOTE | 2020-09-04 18:02 | NUR ---
pt to go to [address] [place] [address] in [place] upon O2 delivery
--- NOTE | 2020-09-04 18:02 | NUR ---
dinner tray delivered
--- NOTE | 2020-09-04 18:46 | NUR ---
pt O2 tanks and concentrator have been delivered to bedside and pt teaching has been done by credit representative. attempted to call pt son to come pick her up. pt son states that he "doesn't have a car" and wants her to go home in a cab pt [facility] residence contacted and notified of pending D/C
[2020-09-04 19:08] VITALS: BP 130/75
== END 2020-09-04 19:11 ==
LOC: ED 15:31
DX: J96.11 Chronic respiratory failure with hypoxia (principal); J44.9 Chronic obstructive pulmonary disease, unspecified; E03.9 Hypothyroidism, unspecified
CPT/HCPCS: 99283

== ENCOUNTER 2020-09-18 18:04 | Emergency (ER) | payer MEDICARE, MEDICAID ==
[~2020-09-18] VITALS: Ht 157.5 cm; Wt 50.0 kg
--- NOTE | 2020-09-18 18:52 | NUR ---
SUMAN SON [phone]
[2020-09-18 19:01] LABS: ALBUMIN 3.2 g/dL (3.4-5.0); ANION GAP 4 mmol/L (5-15); CALCIUM 8.6 mg/dL (8.5-10.1); CHLORIDE 100 mmol/L (98-107); CREATININE 0.48 mg/dL (0.55-1.02)
[2020-09-18 19:07] LABS: BASOPHILS % (AUTO) 1 % (0-1); EOSINOPHILS % (AUTO) 3 % (1-7); LYMPHOCYTES % (AUTO) 13 % (22-44); MEAN CORPUSCULAR HEMOGLOBIN 31.3 pg (27.0-34.8); MEAN CORPUSCULAR HGB CONC 32.8 g/dL (32.4-35.8); MEAN PLATELET VOLUME 10.1 fL (7.4-10.4); MONOCYTES % (AUTO) 10 % (2-9); NEUTROPHILS % (AUTO) 72 % (42-75); PLATELET COUNT 209 x10^3/uL (130-400); RED BLOOD COUNT 3.97 x10^6/uL (3.82-5.3); RED CELL DISTRIBUTION WIDTH 13.4 % (9.6-15.2)
[2020-09-18 19:11] LABS: MD NO
--- NOTE | 2020-09-18 21:05 | NUR ---
CYLINDER DIE MACHINE HELPER: PT. TO ROOM FROM LOBBY AT THIS TIME.
[2020-09-18] MEDS ORDERED: CEFAZOLIN PMX 1GM/50ML 50 ML IVPB ONE (21:30)
[2020-09-18] MEDS ORDERED: SODIUM CHLORIDE FLUSH 10ML SYR IVF ONE (21:30)
[2020-09-18] MEDS ORDERED: VANCOMYCIN PER PHARMACY MC ONE (21:30)
[2020-09-18] MEDS ORDERED: ONDANSETRON 2MG/ML, 2ML IVPush ONE (21:30)
[2020-09-18] MEDS ORDERED: SODIUM CHLORIDE 0.9% 1,000ML IVBOLUS ONE (21:30)
[2020-09-18] MEDS ORDERED: VANCOMYCIN 1,200 MG in SODIUM CHLORIDE 0.9% 250 ML IV ONE (22:00)
--- NOTE | 2020-09-18 22:06 | NUR ---
PT PLACED ON WAFFEL MATTRESS.
[2020-09-18] MEDS ORDERED: CEFAZOLIN PMX 1GM/50ML 50 ML ONE (22:10)
[2020-09-18] MEDS ORDERED: ONDANSETRON 2MG/ML, 2ML ONE (22:10)
[2020-09-18] MEDS ORDERED: MORPHINE SULFATE 4 MG/ML, 1ML ONE ×2 (22:10→22:52)
[2020-09-18] MEDS: MORPHINE SULFATE 4 MG/ML, 1ML IV PRN ×2 (22:13→22:54)
--- NOTE | 2020-09-18 22:27 | NUR ---
KENROY WILL, DAREK TO UPDATE. [phone].
[2020-09-18 23:00] LABS: MICROSCOPIC INDICATED
[2020-09-19] MEDS ORDERED: NEOSPORIN OINT. PKT 1 PACKET ONE (01:27)
--- NOTE | 2020-09-19 04:07 | NUR ---
SHIPPING ASSOCIATE: CALL PLACED TO PT. SON; NO ANSWER. MESSAGE LEFT WITH SON TO CALL ED BACK SO WE CAN ENSURE SAFE D/C HOME FOR PT.
--- NOTE | 2020-09-19 04:25 | NUR ---
THIS PT IS A POOR HISTORIAN, STATES SHE DOESN'T KNOW HER SON'S PHONE NUMBER OR HER OWN ADDRESS. THIS RN PROVIDED EXTENSIVE PERINEAL AND WOUND CARE INCLUDING WOUND CLEANSER, BACITRAICIN, BARRIER CREAM, AND DRESSING. WOUND CARE FOLLOW UP FAXED TO [facility]. PT GIVEN EXTENSIVE EDUCATION ABOUT ALTERNATING SIDES USING PILLOW WHEN LAYING IN BED TO MOVE PRESSURE AND TO GET UP AND WALK MORE OFTEN DURING THE DAY. PT HAS REMAINED WITH BEDRAILS UP X2 AND CALL LIGHT IN REACH.
--- NOTE | 2020-09-19 04:53 | NUR ---
PT SLEEPING, VISIBLE CHEST RISE AND FALL.
--- NOTE | 2020-09-19 05:05 | NUR ---
ANNALISA THE SON CALLED BACK TO CONFIRM PATIENTS HOME ADRESS IN ADDTION HE IS HOME AND WILL BE ABLE TO LET HER IN. YANNA HINKLE CAB VOUCHER PROVIDED
[2020-09-19 05:18] VITALS: BP 99/61
== END 2020-09-19 05:20 | disposition home or self-care (01) ==
LOC: ED 09-19 00:15
DX: T21.55XA Corrosion of first degree of buttock, initial encounter (principal); T21.54XA Corrosion of first degree of lower back, initial encounter; T32.0 Corrosions involving less than 10% of body surface; J44.9 Chronic obstructive pulmonary disease, unspecified; E03.9 Hypothyroidism, unspecified; Z87.891 Personal history of nicotine dependence; X08.8XXA Exposure to other specified smoke, fire and flames, initial encounter; Y93.89 Activity, other specified; Y92.89 Other specified places as the place of occurrence of the external cause; Y99.8 Other external cause status
CPT/HCPCS: 16020; 36415; 80048; 81001; 82040; 85025; 87040; 93005; 96365; 96367; 96375; 99285; J0690; J2270; J2405; J3370; J7030; J7050

== ENCOUNTER 2021-01-16 13:42 | Inpatient (IN) | payer MEDICARE, MEDICAID ==
[~2021-01-16] VITALS: Ht 152.4 cm; Wt 47.8 kg
[~2021-01-16 13:42] MED LIST changes: +ETOMIDATE 20 MG/10 ML ONE; +SUCCINYLCHOLINE 20 MG/ML, 10ML ONE
--- NOTE | 2021-01-16 13:42 | NUR ---
70 YR OLD FEMALE ARRIVED VIA EMS. PER REPORT PT LAST SEEN NORMAL 2 DAYS AGO. PT ALTERED. GCS 3, GUPPY BREATHING. PT RECEIVED 450CC NS INFORMATION SYSTEMS SECURITY ANALYST WAS ON HOME O2 AT 3L NC. PT WITH IV IN RFA. BS 166. PT WITH FEET PURPLE/MOTTELING. PT WITH STRONG URINE AND FECES SMELL, INCONTINENT. PT WITH WOUNDS TO COCCYX AND BACK. SKIN ON LEFT HIP LEATHERY.
--- NOTE | 2021-01-16 13:52 | NUR ---
DR SCHRADER AT BEDSIDE FOR INTUBATION.
[2021-01-16] MEDS ORDERED: PROPOFOL 100 ML IV PRN ×2 (14:00→15:30)
[2021-01-16] MEDS ORDERED: ETOMIDATE 20 MG/10 ML IV ONE (14:00)
[2021-01-16] MEDS ORDERED: SODIUM CHLORIDE FLUSH 10ML SYR IVF ONE (14:00)
[2021-01-16] MEDS ORDERED: SUCCINYLCHOLINE 20 MG/ML, 10ML IVPush ONE (14:00)
[2021-01-16 14:34] LABS: MEAN CORPUSCULAR HGB CONC 32.9 g/dL (32.4-35.8); MEAN PLATELET VOLUME 8.8 fL (7.4-10.4); PLATELET COUNT 407 x10^3/uL (130-400); RED BLOOD COUNT 4.77 x10^6/uL (3.82-5.3)
[2021-01-16 14:46] LABS: ALANINE AMINOTRANSFERASE 12 U/L (12-78); ALBUMIN 2.7 g/dL (3.4-5.0); ANION GAP 7 mmol/L (5-15); CALCIUM 8.8 mg/dL (8.5-10.1); CHLORIDE 108 mmol/L (98-107); CREATININE 0.81 mg/dL (0.55-1.02)
--- NOTE | 2021-01-16 14:47 | NUR ---
PORTABLE CXR COMPLETED. DR SCHRADER AWARE OF OG DRAINING BROWN LIQUID.
[2021-01-16 14:50] LABS: ALKALINE PHOSPHATASE 78 U/L (45-117); BILIRUBIN,TOTAL 0.5 mg/dL (0.2-1.0); TOTAL PROTEIN 6.6 g/dL (6.4-8.2); TROPONIN I < 0.015 ng/mL (0.000-0.045)
[2021-01-16 15:08] LABS: MD YES
--- NOTE | 2021-01-16 15:17 | NUR ---
LITER OF NS STARTED BY EMS, COMPLETED. PT TO CT VIA RHENRIETTA
[2021-01-16] MEDS ORDERED: PHARMACY MAY ADJ FOR RENAL FX MC SCH (15:30)
[2021-01-16 15:32] LABS: INTERNATIONAL NORMALIZED RATIO 1.37 (0.93-1.1); PROTHROMBIN TIME 14.6 Seconds (9.6-11.5)
[2021-01-16 15:33] LABS: LYMPH#(MANUAL) 0.18 x10^3/uL (1-3.4); LYMPHS% (MANUAL) 1 % (22-44)
[2021-01-16 15:34] LABS: <PLATELET ESTIMATE> INCREASED; <PLT MORPHOLOGY> NORMAL PLT MORPH; <RBC MORPHOLOGY> NORMAL; MONOS#(MANUAL) 0.73 x10^3/uL (0.3-2.7); MONOS% (MANUAL) 4 % (2-9); SEGS% (MANUAL) 95 % (42-75)
--- NOTE | 2021-01-16 15:46 | NUR ---
PT RETURN TO ROOM, DR WEBB AT BEDSIDE TO EVAL PT. DISCUSSED POC. PT SKIN. ST PER MONITOR.
[2021-01-16] MEDS ORDERED: VANCOMYCIN PER PHARMACY MC ONE (16:00)
[2021-01-16] MEDS ORDERED: VANCOMYCIN 900 MG in SODIUM CHLORIDE 0.9% 100 ML IV ONE (16:00)
[2021-01-16] MEDS ORDERED: PIPERACILLIN/TAZO/PMX 4.5GM 100 ML IVPB ONE (16:00)
[2021-01-16 16:01] LABS: TRIGLYCERIDES 169 mg/dL (50-200)
[2021-01-16 16:03] LABS: CREATINE KINASE, TOTAL 63 U/L (26-192)
[2021-01-16] MEDS ORDERED: PIPERACILLIN/TAZO/PMX 3.375GM 50 ML ONE ×2 (16:16→16:17)
--- NOTE | 2021-01-16 16:25 | NUR ---
URINE COLLECTED FOR DIAMOND CATHETER BAG, WALKED TO LAB. PT ON WAFFLE MATTRESS. WARM BLANKETS PROVIDED.
[2021-01-16] MEDS ORDERED: PIPERACILLIN/TAZO/PMX 3.375GM 50 ML IV ONE (16:30)
[2021-01-16 16:35] LABS: MICROSCOPIC INDICATED
--- NOTE | 2021-01-16 16:36 | NUR ---
REPORT TO CLAY GHOTRA. POC DISCUSSED.
[2021-01-16] MEDS: PIPERACILLIN/TAZO/PMX 3.375GM 50 ML IV SCH ×2 (17:23→23:09)
[2021-01-16] MEDS: SODIUM CHLORIDE 0.9% 1,000 ML IV SCH (17:23)
[2021-01-16] MEDS ORDERED: ENOXAPARIN 40 MG/0.4 ML ONE (17:25)
[2021-01-16] MEDS: ENOXAPARIN 40 MG/0.4 ML SQ SCH (17:26)
[2021-01-16] MEDS ORDERED: VANCOMYCIN PER PHARMACY MC PRN (17:30)
[2021-01-16] MEDS ORDERED: ALBUTEROL/IPRATROPIUM 2.5MG/0.5MG, 3 ML ONE (18:13)
[2021-01-16] MEDS ORDERED: PHARMACOKINETIC MONITORING MC PRN (19:00)
[2021-01-16] MEDS: ALBUTEROL/IPRATROPIUM 2.5MG/0.5MG, 3 ML NPPB SCH ×2 (19:00→22:20)
[2021-01-16] MEDS ORDERED: PHARMACOKINETIC CONSULTATION MC ONE (19:00)
[2021-01-16] MEDS: FAMOTIDINE 20 MG/2 ML IVPush SCH (20:44)
[2021-01-16] MEDS: BUDESONIDE 0.5 MG/2 ML INHA NPPB SCH (21:00)
[2021-01-17] MEDS: SODIUM CHLORIDE 0.9% 1,000 ML IV SCH ×3 (01:30→17:27)
[2021-01-17] MEDS: ALBUTEROL/IPRATROPIUM 2.5MG/0.5MG, 3 ML NPPB SCH ×6 (02:37→22:50)
[2021-01-17 04:38] LABS: BASOPHILS % (AUTO) 1 % (0-1); EOSINOPHILS % (AUTO) 0 % (1-7); LYMPHOCYTES % (AUTO) 3 % (22-44); MEAN CORPUSCULAR HEMOGLOBIN 30.7 pg (27.0-34.8); MEAN CORPUSCULAR HGB CONC 32.5 g/dL (32.4-35.8); MEAN PLATELET VOLUME 9.7 fL (7.4-10.4); MONOCYTES % (AUTO) 12 % (2-9); NEUTROPHILS % (AUTO) 84 % (42-75); PLATELET COUNT 324 x10^3/uL (130-400); RED BLOOD COUNT 4.43 x10^6/uL (3.82-5.3); RED CELL DISTRIBUTION WIDTH 13.6 % (9.6-15.2)
[2021-01-17 04:46] LABS: ANION GAP 8 mmol/L (5-15); CALCIUM 8.7 mg/dL (8.5-10.1); CHLORIDE 113 mmol/L (98-107); CREATININE 0.83 mg/dL (0.55-1.02)
[2021-01-17 05:10] LABS: MD SCAN
[2021-01-17] MEDS: PIPERACILLIN/TAZO/PMX 3.375GM 50 ML IV SCH ×4 (05:24→22:46)
[2021-01-17] MEDS: BUDESONIDE 0.5 MG/2 ML INHA NPPB SCH ×2 (07:54→19:36)
[2021-01-17] MEDS: FAMOTIDINE 20 MG/2 ML IVPush SCH (08:34)
[2021-01-17] MEDS: THIAMINE 200 MG in SODIUM CHLORIDE 0.9% 50 ML IV SCH (10:12)
[2021-01-17] MEDS: VANCOMYCIN 700 MG in SODIUM CHLORIDE 0.9% 100 ML IV SCH (11:19)
[2021-01-17] MEDS ORDERED: OXYcodone/APAP 5/325MG TABLET ONE (14:12)
[2021-01-17] MEDS: OXYcodone/APAP 5/325MG TABLET NG PRN ×2 (14:27→20:04)
--- NOTE | 2021-01-17 14:57 | NUR ---
TF recs if needed: Promote w/ end goal rate of 50mL/hr (on propofol); 55mL/hr (OFF propofol). Recommend to start low (10mL/hr) and advance very slow (10mL/hr I95-90nf as tolerated) d/t patient w/ severe PCM and at high risk for refeeding syndrome. Monitor and replete electrolytes K+, phos, mg as needed. Addendum: 01/17/21 at [address] Amended: Links added.
[2021-01-17] MEDS: ENOXAPARIN 40 MG/0.4 ML SQ SCH (17:28)
[2021-01-18] MEDS: SODIUM CHLORIDE 0.9% 1,000 ML IV SCH ×2 (01:30→09:30)
[2021-01-18] MEDS: ALBUTEROL/IPRATROPIUM 2.5MG/0.5MG, 3 ML NPPB SCH ×4 (03:00→15:32)
[2021-01-18 05:05] LABS: BASOPHILS % (AUTO) 1 % (0-1); EOSINOPHILS % (AUTO) 0 % (1-7); LYMPHOCYTES % (AUTO) 4 % (22-44); MEAN CORPUSCULAR HEMOGLOBIN 31.3 pg (27.0-34.8); MEAN CORPUSCULAR HGB CONC 32.6 g/dL (32.4-35.8); MONOCYTES % (AUTO) 11 % (2-9); NEUTROPHILS % (AUTO) 84 % (42-75); PLATELET COUNT 282 x10^3/uL (130-400); RED BLOOD COUNT 3.46 x10^6/uL (3.82-5.3); RED CELL DISTRIBUTION WIDTH 14.4 % (9.6-15.2)
[2021-01-18 05:16] LABS: ANION GAP 5 mmol/L (5-15); CALCIUM 7.7 mg/dL (8.5-10.1); CHLORIDE 118 mmol/L (98-107)
[2021-01-18 05:18] LABS: CREATININE 0.67 mg/dL (0.55-1.02)
[2021-01-18 05:38] LABS: MD NO
[2021-01-18] MEDS: PIPERACILLIN/TAZO/PMX 3.375GM 50 ML IV SCH ×3 (05:41→16:56)
[2021-01-18] MEDS: VANCOMYCIN 700 MG in SODIUM CHLORIDE 0.9% 100 ML IV SCH ×2 (06:16→23:19)
[2021-01-18] MEDS: BUDESONIDE 0.5 MG/2 ML INHA NPPB SCH (07:23)
[2021-01-18] MEDS: FAMOTIDINE 20 MG/2 ML IVPush SCH (10:29)
[2021-01-18] MEDS: THIAMINE 200 MG in SODIUM CHLORIDE 0.9% 50 ML IV SCH (10:29)
[2021-01-18] MEDS ORDERED: POTASSIUM PHOSPHATE 44 MEQ in SODIUM CHLORIDE 0.9% 500 ML IV ONE ×2 (10:30→11:00)
[2021-01-18] MEDS ORDERED: POTASSIUM CHLORIDE 40 MEQ in SODIUM CHLORIDE 0.9% 500 ML IV ONE ×2 (11:00→20:00)
[2021-01-18] MEDS: ENOXAPARIN 40 MG/0.4 ML SQ SCH (16:56)
[2021-01-18] MEDS: ALBUTEROL-IPRATROPIUM MDI INH INH SCH ×2 (19:00→23:00)
[2021-01-18] MEDS ORDERED: LACTATED RINGERS 500 ML IVBOLUS ONE (19:00)
[2021-01-18] MEDS: FLUTICASONE FUROATE 100MCG/INH INH SCH (19:28)
[2021-01-18] MEDS: OXYcodone/APAP 5/325MG TABLET NG PRN (21:31)
[2021-01-19] MEDS: PIPERACILLIN/TAZO/PMX 3.375GM 50 ML IV SCH ×5 (00:42→23:31)
[2021-01-19] MEDS: ALBUTEROL-IPRATROPIUM MDI INH INH SCH ×4 (03:00→11:30)
[2021-01-19 04:37] LABS: ANION GAP 1 mmol/L (5-15); CALCIUM 7.3 mg/dL (8.5-10.1); CHLORIDE 117 mmol/L (98-107); TRIGLYCERIDES 131 mg/dL (50-200)
[2021-01-19 04:40] LABS: BASOPHILS % (AUTO) 0 % (0-1); EOSINOPHILS % (AUTO) 1 % (1-7); LYMPHOCYTES % (AUTO) 8 % (22-44); MEAN CORPUSCULAR HEMOGLOBIN 31.1 pg (27.0-34.8); MEAN CORPUSCULAR HGB CONC 32.5 g/dL (32.4-35.8); MEAN PLATELET VOLUME 9.6 fL (7.4-10.4); MONOCYTES % (AUTO) 11 % (2-9); NEUTROPHILS % (AUTO) 79 % (42-75); PLATELET COUNT 259 x10^3/uL (130-400); RED BLOOD COUNT 3.31 x10^6/uL (3.82-5.3); RED CELL DISTRIBUTION WIDTH 14.5 % (9.6-15.2)
[2021-01-19 04:47] LABS: MD NO
[2021-01-19] MEDS: FLUTICASONE FUROATE 100MCG/INH INH SCH ×2 (06:56→20:06)
[2021-01-19] MEDS: THIAMINE 200 MG in SODIUM CHLORIDE 0.9% 50 ML IV SCH (08:21)
[2021-01-19] MEDS: FAMOTIDINE 20 MG/2 ML IVPush SCH (09:03)
[2021-01-19 09:39] VITALS: BP 99/67
[2021-01-19] MEDS: OXYcodone/APAP 5/325MG TABLET NG PRN ×3 (10:19→23:41)
[2021-01-19] MEDS ORDERED: ALBUTEROL-IPRATROPIUM MDI INH INH PRN (15:00)
[2021-01-19 15:57] VITALS: BP 143/86
[2021-01-19] MEDS: ENOXAPARIN 40 MG/0.4 ML SQ SCH (17:13)
[2021-01-19 18:41] VITALS: BP 101/65
[2021-01-20 02:08] VITALS: BP 95/61
[2021-01-20] MEDS: PIPERACILLIN/TAZO/PMX 3.375GM 50 ML IV SCH ×3 (05:27→17:00)
[2021-01-20 06:15] LABS: CALCIUM 7.2 mg/dL (8.5-10.1); CREATININE 0.44 mg/dL (0.55-1.02)
[2021-01-20 06:22] LABS: BASOPHILS % (AUTO) 0 % (0-1); EOSINOPHILS % (AUTO) 4 % (1-7); LYMPHOCYTES % (AUTO) 12 % (22-44); MEAN CORPUSCULAR HEMOGLOBIN 31.2 pg (27.0-34.8); MEAN CORPUSCULAR HGB CONC 32.1 g/dL (32.4-35.8); MONOCYTES % (AUTO) 10 % (2-9); NEUTROPHILS % (AUTO) 75 % (42-75); PLATELET COUNT 263 x10^3/uL (130-400); RED BLOOD COUNT 3.36 x10^6/uL (3.82-5.3); RED CELL DISTRIBUTION WIDTH 14.5 % (9.6-15.2)
[2021-01-20 06:24] LABS: ANION GAP 4 mmol/L (5-15); CHLORIDE 105 mmol/L (98-107)
[2021-01-20 06:27] LABS: MD NO
[2021-01-20 06:38] VITALS: BP 92/62
[2021-01-20] MEDS: FLUTICASONE FUROATE 100MCG/INH INH SCH ×2 (08:45→21:00)
[2021-01-20] MEDS: THIAMINE 200 MG in SODIUM CHLORIDE 0.9% 50 ML IV SCH (09:10)
[2021-01-20] MEDS: FAMOTIDINE 20 MG TABLET PO SCH (09:10)
[2021-01-20] MEDS: OXYcodone/APAP 5/325MG TABLET NG PRN ×2 (09:34→21:54)
[2021-01-20 14:00] VITALS: BP 92/63
[2021-01-20] MEDS: ENOXAPARIN 40 MG/0.4 ML SQ SCH (17:00)
[2021-01-20 19:04] VITALS: BP 89/53
[2021-01-20 21:53] VITALS: BP 99/68
[2021-01-21] MEDS: PIPERACILLIN/TAZO/PMX 3.375GM 50 ML IV SCH ×4 (00:47→17:59)
[2021-01-21 01:18] VITALS: BP_SYST 88; BP_SYST 92; BP_DIAS 55; BP_DIAS 56
[2021-01-21 05:46] VITALS: BP 102/69
[2021-01-21] MEDS: OXYcodone/APAP 5/325MG TABLET NG PRN ×2 (05:53→15:55)
[2021-01-21 06:16] LABS: BASOPHILS % (AUTO) 0 % (0-1); EOSINOPHILS % (AUTO) 4 % (1-7); LYMPHOCYTES % (AUTO) 12 % (22-44); MEAN CORPUSCULAR HEMOGLOBIN 30.9 pg (27.0-34.8); MEAN PLATELET VOLUME 9.2 fL (7.4-10.4); MONOCYTES % (AUTO) 9 % (2-9); NEUTROPHILS % (AUTO) 75 % (42-75); PLATELET COUNT 274 x10^3/uL (130-400); RED BLOOD COUNT 3.55 x10^6/uL (3.82-5.3); RED CELL DISTRIBUTION WIDTH 14.3 % (9.6-15.2)
[2021-01-21 06:20] LABS: MD NO
[2021-01-21 06:29] LABS: CALCIUM 7.5 mg/dL (8.5-10.1)
[2021-01-21 06:31] VITALS: BP 85/56
[2021-01-21 06:32] LABS: CREATININE 0.34 mg/dL (0.55-1.02)
[2021-01-21 06:41] LABS: ANION GAP 3 mmol/L (5-15)
[2021-01-21 06:42] LABS: CHLORIDE 103 mmol/L (98-107)
[2021-01-21] MEDS: FAMOTIDINE 20 MG TABLET PO SCH (08:12)
[2021-01-21] MEDS: FLUTICASONE FUROATE 100MCG/INH INH SCH ×2 (08:25→20:20)
[2021-01-21 09:15] LABS: O2 FLOW 15 L/min
[2021-01-21] MEDS: THIAMINE 200 MG in SODIUM CHLORIDE 0.9% 50 ML IV SCH (10:00)
[2021-01-21 13:27] VITALS: BP 109/75
[2021-01-21] MEDS: ENOXAPARIN 40 MG/0.4 ML SQ SCH (17:30)
[2021-01-21 20:03] VITALS: BP 112/78
[2021-01-22] MEDS: PIPERACILLIN/TAZO/PMX 3.375GM 50 ML IV SCH ×4 (00:20→17:32)
[2021-01-22] MEDS: OXYcodone/APAP 5/325MG TABLET NG PRN ×2 (00:21→23:26)
[2021-01-22 00:23] VITALS: BP 112/75
[2021-01-22 03:54] LABS: BASOPHILS % (AUTO) 0 % (0-1); EOSINOPHILS % (AUTO) 3 % (1-7); LYMPHOCYTES % (AUTO) 8 % (22-44); MEAN CORPUSCULAR HEMOGLOBIN 31.3 pg (27.0-34.8); MEAN CORPUSCULAR HGB CONC 32.1 g/dL (32.4-35.8); MEAN PLATELET VOLUME 8.8 fL (7.4-10.4); MONOCYTES % (AUTO) 8 % (2-9); NEUTROPHILS % (AUTO) 81 % (42-75); PLATELET COUNT 298 x10^3/uL (130-400); RED BLOOD COUNT 3.56 x10^6/uL (3.82-5.3); RED CELL DISTRIBUTION WIDTH 14.1 % (9.6-15.2)
[2021-01-22 03:55] LABS: MD NO
[2021-01-22 04:00] LABS: CALCIUM 7.4 mg/dL (8.5-10.1); CREATININE 0.33 mg/dL (0.55-1.02); TRIGLYCERIDES 174 mg/dL (50-200)
[2021-01-22 04:18] LABS: ANION GAP 1 mmol/L (5-15); CHLORIDE 102 mmol/L (98-107)
[2021-01-22] MEDS: FLUTICASONE FUROATE 100MCG/INH INH SCH ×2 (06:28→21:21)
[2021-01-22 07:00] VITALS: BP 105/68
[2021-01-22] MEDS: FAMOTIDINE 20 MG TABLET PO SCH (09:00)
[2021-01-22] MEDS ORDERED: POTASSIUM PHOSPHATE 44 MEQ in SODIUM CHLORIDE 0.9% 500 ML IV ONE (09:30)
[2021-01-22] MEDS ORDERED: MAGNESIUM SULFATE PMX 2GM/50ML 50 ML IV ONE (09:30)
[2021-01-22] MEDS: methylPREDNISolone SOD SUCC 40 MG/ML IV SCH (09:49)
[2021-01-22] MEDS: THIAMINE 200 MG in SODIUM CHLORIDE 0.9% 50 ML IV SCH (10:06)
[2021-01-22 14:16] LABS: MICROSCOPIC INDICATED
[2021-01-22] MEDS: ENOXAPARIN 40 MG/0.4 ML SQ SCH (17:32)
[2021-01-22] MEDS: ALBUTEROL/IPRATROPIUM 2.5MG/0.5MG, 3 ML HHN SCH ×2 (20:41→21:00)
[2021-01-23] MEDS: PIPERACILLIN/TAZO/PMX 3.375GM 50 ML IV SCH ×3 (01:03→12:26)
[2021-01-23] MEDS: ALBUTEROL/IPRATROPIUM 2.5MG/0.5MG, 3 ML HHN SCH ×2 (03:00→07:07)
[2021-01-23 04:16] LABS: BASOPHILS % (AUTO) 0 % (0-1); EOSINOPHILS % (AUTO) 1 % (1-7); LYMPHOCYTES % (AUTO) 11 % (22-44); MEAN CORPUSCULAR HEMOGLOBIN 31.2 pg (27.0-34.8); MEAN CORPUSCULAR HGB CONC 32.6 g/dL (32.4-35.8); MEAN PLATELET VOLUME 8.6 fL (7.4-10.4); MONOCYTES % (AUTO) 8 % (2-9); NEUTROPHILS % (AUTO) 79 % (42-75); PLATELET COUNT 307 x10^3/uL (130-400); RED BLOOD COUNT 3.34 x10^6/uL (3.82-5.3)
[2021-01-23 04:17] LABS: MD NO
[2021-01-23 04:28] LABS: ANION GAP 2 mmol/L (5-15); CALCIUM 7.5 mg/dL (8.5-10.1); CHLORIDE 99 mmol/L (98-107)
[2021-01-23 04:29] LABS: CREATININE 0.25 mg/dL (0.55-1.02)
[2021-01-23] MEDS: LEVOTHYROXINE 100 MCG TABLET PO SCH (04:31)
[2021-01-23 06:00] VITALS: BP 123/63
[2021-01-23] MEDS ORDERED: SODIUM PHOSPHATE 10 MMOL in SODIUM CHLORIDE 0.9% 500 ML IV ONE (07:00)
[2021-01-23] MEDS: OXYcodone/APAP 5/325MG TABLET NG PRN ×3 (07:34→21:23)
[2021-01-23] MEDS: FAMOTIDINE 20 MG TABLET PO SCH (07:34)
[2021-01-23] MEDS: FLUTICASONE FUROATE 100MCG/INH INH SCH ×2 (09:00→23:00)
[2021-01-23] MEDS: methylPREDNISolone SOD SUCC 40 MG/ML IV SCH (09:31)
[2021-01-23] MEDS: THIAMINE 200 MG in SODIUM CHLORIDE 0.9% 50 ML IV SCH (09:44)
[2021-01-23] MEDS: ALBUTEROL-IPRATROPIUM MDI INH INH SCH ×2 (15:08→21:00)
[2021-01-23] MEDS: ENOXAPARIN 40 MG/0.4 ML SQ SCH (18:11)
[2021-01-23 19:03] VITALS: BP 129/68
[2021-01-24 01:08] VITALS: BP 120/62
[2021-01-24] MEDS: LEVOTHYROXINE 100 MCG TABLET PO SCH (05:15)
[2021-01-24 05:23] LABS: CALCIUM 7.6 mg/dL (8.5-10.1); CREATININE 0.44 mg/dL (0.55-1.02)
[2021-01-24 05:27] LABS: BASOPHILS % (AUTO) 0 % (0-1); EOSINOPHILS % (AUTO) 2 % (1-7); LYMPHOCYTES % (AUTO) 13 % (22-44); MEAN CORPUSCULAR HEMOGLOBIN 31.2 pg (27.0-34.8); MEAN CORPUSCULAR HGB CONC 32.5 g/dL (32.4-35.8); MEAN PLATELET VOLUME 8.5 fL (7.4-10.4); MONOCYTES % (AUTO) 10 % (2-9); NEUTROPHILS % (AUTO) 75 % (42-75); PLATELET COUNT 317 x10^3/uL (130-400); RED CELL DISTRIBUTION WIDTH 14.1 % (9.6-15.2)
[2021-01-24 05:28] LABS: MD NO
[2021-01-24 05:32] LABS: ANION GAP 2 mmol/L (5-15); CHLORIDE 99 mmol/L (98-107)
[2021-01-24 08:38] VITALS: BP 85/55
[2021-01-24 08:41] VITALS: BP 86/57
[2021-01-24] MEDS: ALBUTEROL-IPRATROPIUM MDI INH INH SCH ×3 (09:00→19:55)
[2021-01-24] MEDS: FLUTICASONE FUROATE 100MCG/INH INH SCH ×2 (09:00→19:54)
[2021-01-24] MEDS: FAMOTIDINE 20 MG TABLET PO SCH (10:37)
[2021-01-24] MEDS: K-PHOS NEUTRAL 250MG TAB PO SCH ×3 (10:37→21:08)
[2021-01-24] MEDS: OXYcodone/APAP 5/325MG TABLET NG PRN ×3 (10:38→21:07)
[2021-01-24] MEDS: methylPREDNISolone SOD SUCC 40 MG/ML IV SCH (10:38)
[2021-01-24] MEDS: THIAMINE 200 MG in SODIUM CHLORIDE 0.9% 50 ML IV SCH (11:18)
[2021-01-24 13:51] VITALS: BP 99/69
[2021-01-24] MEDS: ENOXAPARIN 40 MG/0.4 ML SQ SCH (16:21)
[2021-01-24 19:01] VITALS: BP 112/75
[2021-01-25 00:58] VITALS: BP 100/60
[2021-01-25] MEDS: LEVOTHYROXINE 100 MCG TABLET PO SCH (05:45)
[2021-01-25] MEDS: OXYcodone/APAP 5/325MG TABLET NG PRN ×4 (05:45→23:44)
[2021-01-25 06:03] LABS: BASOPHILS % (AUTO) 0 % (0-1); EOSINOPHILS % (AUTO) 2 % (1-7); LYMPHOCYTES % (AUTO) 13 % (22-44); MEAN CORPUSCULAR HEMOGLOBIN 31.2 pg (27.0-34.8); MEAN CORPUSCULAR HGB CONC 32.3 g/dL (32.4-35.8); MEAN PLATELET VOLUME 8.1 fL (7.4-10.4); MONOCYTES % (AUTO) 12 % (2-9); NEUTROPHILS % (AUTO) 72 % (42-75); PLATELET COUNT 307 x10^3/uL (130-400); RED BLOOD COUNT 3.16 x10^6/uL (3.82-5.3); RED CELL DISTRIBUTION WIDTH 14.4 % (9.6-15.2)
[2021-01-25 06:04] LABS: MD NO
[2021-01-25 06:15] LABS: CALCIUM 7.1 mg/dL (8.5-10.1); CHLORIDE 99 mmol/L (98-107); CREATININE 0.21 mg/dL (0.55-1.02)
[2021-01-25 06:28] LABS: ANION GAP 1 mmol/L (5-15)
[2021-01-25 06:45] VITALS: BP 101/71
[2021-01-25] MEDS: FLUTICASONE FUROATE 100MCG/INH INH SCH ×2 (08:10→20:19)
[2021-01-25] MEDS: ALBUTEROL-IPRATROPIUM MDI INH INH SCH ×3 (08:10→20:19)
[2021-01-25] MEDS: K-PHOS NEUTRAL 250MG TAB PO SCH (10:06)
[2021-01-25] MEDS: FAMOTIDINE 20 MG TABLET PO SCH (10:06)
[2021-01-25] MEDS: THIAMINE 100MG TABLET PO SCH (10:06)
[2021-01-25] MEDS: POLYETHYLENE GLYCOL 17 GM PACKET PO SCH (11:10)
[2021-01-25 13:30] VITALS: BP 106/72
[2021-01-25] MEDS: ERTAPENEM 1 GM in SODIUM CHLORIDE 0.9% 50 ML IV SCH (17:01)
[2021-01-25] MEDS: ENOXAPARIN 40 MG/0.4 ML SQ SCH (17:02)
[2021-01-25 20:16] VITALS: BP 105/74
[2021-01-26 00:53] VITALS: BP 111/71
[2021-01-26] MEDS: OXYcodone/APAP 5/325MG TABLET NG PRN ×2 (06:19→20:14)
[2021-01-26] MEDS: LEVOTHYROXINE 100 MCG TABLET PO SCH (06:19)
[2021-01-26 06:52] LABS: BASOPHILS % (AUTO) 1 % (0-1); EOSINOPHILS % (AUTO) 1 % (1-7); LYMPHOCYTES % (AUTO) 9 % (22-44); MEAN CORPUSCULAR HEMOGLOBIN 30.8 pg (27.0-34.8); MEAN PLATELET VOLUME 8.6 fL (7.4-10.4); MONOCYTES % (AUTO) 11 % (2-9); NEUTROPHILS % (AUTO) 79 % (42-75); PLATELET COUNT 317 x10^3/uL (130-400); RED BLOOD COUNT 2.99 x10^6/uL (3.82-5.3); RED CELL DISTRIBUTION WIDTH 14.7 % (9.6-15.2)
[2021-01-26 06:55] LABS: MD NO
[2021-01-26 07:02] LABS: CALCIUM 6.9 mg/dL (8.5-10.1); CHLORIDE 106 mmol/L (98-107)
[2021-01-26 07:11] VITALS: BP 113/79
[2021-01-26 07:34] LABS: ANION GAP 4 mmol/L (5-15)
[2021-01-26] MEDS: ALBUTEROL-IPRATROPIUM MDI INH INH SCH ×3 (07:50→19:18)
[2021-01-26] MEDS: FLUTICASONE FUROATE 100MCG/INH INH SCH (09:00)
[2021-01-26] MEDS: POLYETHYLENE GLYCOL 17 GM PACKET PO SCH (09:31)
[2021-01-26] MEDS: THIAMINE 100MG TABLET PO SCH (09:31)
[2021-01-26] MEDS: FAMOTIDINE 20 MG TABLET PO SCH (09:31)
[2021-01-26] MEDS ORDERED: MAGNESIUM SULFATE PMX 2GM/50ML 50 ML IV ONE (10:00)
[2021-01-26] MEDS: FLUTICASONE/VILANTEROL 100-25MCG/INH INH SCH (11:06)
[2021-01-26] MEDS: K-PHOS NEUTRAL 250MG TAB PO SCH ×2 (11:06→20:14)
[2021-01-26 12:41] VITALS: BP 101/65
[2021-01-26] MEDS: ERTAPENEM 1 GM in SODIUM CHLORIDE 0.9% 50 ML IV SCH (17:21)
[2021-01-26] MEDS: ENOXAPARIN 40 MG/0.4 ML SQ SCH (17:21)
[2021-01-26] MEDS: MAGNESIUM OXIDE 400 MG TABLET PO SCH (20:14)
[2021-01-26 21:21] VITALS: BP 96/65
[2021-01-27 03:05] VITALS: BP 95/65
[2021-01-27] MEDS: LEVOTHYROXINE 100 MCG TABLET PO SCH (05:31)
[2021-01-27] MEDS: OXYcodone/APAP 5/325MG TABLET NG PRN ×3 (05:31→23:29)
[2021-01-27 06:43] VITALS: BP 101/70
[2021-01-27 06:45] LABS: BASOPHILS % (AUTO) 1 % (0-1); EOSINOPHILS % (AUTO) 2 % (1-7); LYMPHOCYTES % (AUTO) 12 % (22-44); MD NO; MEAN PLATELET VOLUME 8.7 fL (7.4-10.4); MONOCYTES % (AUTO) 10 % (2-9); NEUTROPHILS % (AUTO) 76 % (42-75); PLATELET COUNT 340 x10^3/uL (130-400); RED BLOOD COUNT 3.17 x10^6/uL (3.82-5.3)
[2021-01-27 06:54] LABS: ANION GAP 3 mmol/L (5-15); CHLORIDE 98 mmol/L (98-107); CREATININE 0.33 mg/dL (0.55-1.02)
[2021-01-27] MEDS: FLUTICASONE/VILANTEROL 100-25MCG/INH INH SCH (07:45)
[2021-01-27] MEDS: ALBUTEROL-IPRATROPIUM MDI INH INH SCH ×3 (07:45→19:15)
[2021-01-27] MEDS: FAMOTIDINE 20 MG TABLET PO SCH (08:48)
[2021-01-27] MEDS: K-PHOS NEUTRAL 250MG TAB PO SCH ×2 (08:48→21:12)
[2021-01-27] MEDS: MAGNESIUM OXIDE 400 MG TABLET PO SCH ×2 (08:48→21:12)
[2021-01-27] MEDS: THIAMINE 100MG TABLET PO SCH (08:48)
[2021-01-27] MEDS: POLYETHYLENE GLYCOL 17 GM PACKET PO SCH (08:49)
[2021-01-27 12:32] VITALS: BP 94/68
[2021-01-27] MEDS: ERTAPENEM 1 GM in SODIUM CHLORIDE 0.9% 50 ML IV SCH (16:08)
[2021-01-27] MEDS: ENOXAPARIN 40 MG/0.4 ML SQ SCH (17:30)
[2021-01-27 18:41] VITALS: BP 92/64
[2021-01-28 01:05] VITALS: BP 109/73
[2021-01-28] MEDS: LEVOTHYROXINE 100 MCG TABLET PO SCH (05:20)
[2021-01-28 06:27] LABS: BASOPHILS % (AUTO) 1 % (0-1); EOSINOPHILS % (AUTO) 4 % (1-7); LYMPHOCYTES % (AUTO) 10 % (22-44); MEAN CORPUSCULAR HEMOGLOBIN 32.2 pg (27.0-34.8); MEAN CORPUSCULAR HGB CONC 33.2 g/dL (32.4-35.8); MEAN PLATELET VOLUME 8.7 fL (7.4-10.4); MONOCYTES % (AUTO) 10 % (2-9); NEUTROPHILS % (AUTO) 76 % (42-75); PLATELET COUNT 323 x10^3/uL (130-400); RED BLOOD COUNT 3.02 x10^6/uL (3.82-5.3); RED CELL DISTRIBUTION WIDTH 14.8 % (9.6-15.2)
[2021-01-28 06:34] LABS: ANION GAP 3 mmol/L (5-15); CALCIUM 8.2 mg/dL (8.5-10.1); CHLORIDE 96 mmol/L (98-107)
[2021-01-28 06:35] LABS: CREATININE 0.19 mg/dL (0.55-1.02)
[2021-01-28 06:39] LABS: MD NO
[2021-01-28] MEDS: ALBUTEROL-IPRATROPIUM MDI INH INH SCH ×3 (07:45→20:08)
[2021-01-28] MEDS: FLUTICASONE/VILANTEROL 100-25MCG/INH INH SCH (07:50)
[2021-01-28] MEDS: OXYcodone/APAP 5/325MG TABLET NG PRN ×2 (08:41→17:14)
[2021-01-28] MEDS: K-PHOS NEUTRAL 250MG TAB PO SCH ×2 (08:41→19:55)
[2021-01-28] MEDS: POLYETHYLENE GLYCOL 17 GM PACKET PO SCH (08:41)
[2021-01-28] MEDS: MAGNESIUM OXIDE 400 MG TABLET PO SCH ×2 (08:41→19:55)
[2021-01-28] MEDS: THIAMINE 100MG TABLET PO SCH (08:41)
[2021-01-28] MEDS: FAMOTIDINE 20 MG TABLET PO SCH (08:41)
[2021-01-28 09:23] VITALS: BP 90/61
[2021-01-28] MEDS: ERTAPENEM 1 GM in SODIUM CHLORIDE 0.9% 50 ML IV SCH (15:22)
[2021-01-28 15:37] VITALS: BP 101/69
[2021-01-28] MEDS: ENOXAPARIN 40 MG/0.4 ML SQ SCH (17:08)
[2021-01-28 19:23] VITALS: BP 103/69
[2021-01-29 01:23] VITALS: BP 116/80
[2021-01-29] MEDS: OXYcodone/APAP 5/325MG TABLET NG PRN ×3 (02:31→20:31)
[2021-01-29] MEDS: LEVOTHYROXINE 100 MCG TABLET PO SCH (05:04)
[2021-01-29 05:42] LABS: BASOPHILS % (AUTO) 1 % (0-1); EOSINOPHILS % (AUTO) 4 % (1-7); LYMPHOCYTES % (AUTO) 9 % (22-44); MEAN CORPUSCULAR HEMOGLOBIN 31.3 pg (27.0-34.8); MEAN CORPUSCULAR HGB CONC 32.5 g/dL (32.4-35.8); MEAN PLATELET VOLUME 8.4 fL (7.4-10.4); MONOCYTES % (AUTO) 9 % (2-9); NEUTROPHILS % (AUTO) 77 % (42-75); PLATELET COUNT 301 x10^3/uL (130-400); RED BLOOD COUNT 3.03 x10^6/uL (3.82-5.3); RED CELL DISTRIBUTION WIDTH 15.5 % (9.6-15.2)
[2021-01-29 05:55] LABS: ANION GAP 0 mmol/L (5-15); CALCIUM 8.4 mg/dL (8.5-10.1); CHLORIDE 98 mmol/L (98-107)
[2021-01-29 05:58] LABS: MD NO
[2021-01-29 06:59] VITALS: BP 125/77
[2021-01-29] MEDS: ALBUTEROL-IPRATROPIUM MDI INH INH SCH ×3 (07:15→20:31)
[2021-01-29] MEDS: MAGNESIUM OXIDE 400 MG TABLET PO SCH ×2 (08:45→20:31)
[2021-01-29] MEDS: THIAMINE 100MG TABLET PO SCH (08:45)
[2021-01-29] MEDS: K-PHOS NEUTRAL 250MG TAB PO SCH ×2 (08:45→20:31)
[2021-01-29] MEDS: FAMOTIDINE 20 MG TABLET PO SCH (08:45)
[2021-01-29] MEDS: POLYETHYLENE GLYCOL 17 GM PACKET PO SCH (08:45)
[2021-01-29] MEDS: FLUTICASONE/VILANTEROL 100-25MCG/INH INH SCH (09:00)
[2021-01-29 12:24] VITALS: BP 110/66
[2021-01-29] MEDS: ERTAPENEM 1 GM in SODIUM CHLORIDE 0.9% 50 ML IV SCH (15:46)
[2021-01-29] MEDS: ENOXAPARIN 40 MG/0.4 ML SQ SCH (17:30)
[2021-01-29 19:29] VITALS: BP 97/63
[2021-01-30 01:05] VITALS: BP 93/67
[2021-01-30] MEDS: LEVOTHYROXINE 100 MCG TABLET PO SCH (05:36)
[2021-01-30 06:26] LABS: BASOPHILS % (AUTO) 1 % (0-1); EOSINOPHILS % (AUTO) 5 % (1-7); LYMPHOCYTES % (AUTO) 11 % (22-44); MEAN CORPUSCULAR HEMOGLOBIN 31.6 pg (27.0-34.8); MEAN CORPUSCULAR HGB CONC 32.9 g/dL (32.4-35.8); MEAN PLATELET VOLUME 8.8 fL (7.4-10.4); MONOCYTES % (AUTO) 8 % (2-9); NEUTROPHILS % (AUTO) 75 % (42-75); PLATELET COUNT 273 x10^3/uL (130-400); RED BLOOD COUNT 3.05 x10^6/uL (3.82-5.3); RED CELL DISTRIBUTION WIDTH 15.9 % (9.6-15.2)
[2021-01-30 06:35] LABS: ANION GAP 1 mmol/L (5-15); CALCIUM 8.3 mg/dL (8.5-10.1); CHLORIDE 99 mmol/L (98-107); CREATININE 0.24 mg/dL (0.55-1.02)
[2021-01-30 06:39] LABS: MD NO
[2021-01-30] MEDS: ALBUTEROL-IPRATROPIUM MDI INH INH SCH ×3 (07:00→20:33)
[2021-01-30] MEDS: FLUTICASONE/VILANTEROL 100-25MCG/INH INH SCH (07:00)
[2021-01-30 09:15] VITALS: BP 92/60
[2021-01-30] MEDS: FAMOTIDINE 20 MG TABLET PO SCH (10:38)
[2021-01-30] MEDS: POLYETHYLENE GLYCOL 17 GM PACKET PO SCH (10:39)
[2021-01-30] MEDS: THIAMINE 100MG TABLET PO SCH (10:39)
[2021-01-30] MEDS: K-PHOS NEUTRAL 250MG TAB PO SCH ×2 (10:39→20:57)
[2021-01-30] MEDS: MAGNESIUM OXIDE 400 MG TABLET PO SCH ×2 (10:39→20:57)
[2021-01-30] MEDS: OXYcodone/APAP 5/325MG TABLET NG PRN ×2 (10:45→17:04)
[2021-01-30 13:22] VITALS: BP 100/70
[2021-01-30] MEDS: ENOXAPARIN 40 MG/0.4 ML SQ SCH (17:03)
[2021-01-30] MEDS: ERTAPENEM 1 GM in SODIUM CHLORIDE 0.9% 50 ML IV SCH (17:03)
[2021-01-30 20:08] VITALS: BP 99/66
[2021-01-31 01:55] VITALS: BP 92/62
[2021-01-31] MEDS: LEVOTHYROXINE 100 MCG TABLET PO SCH (05:03)
[2021-01-31 05:37] LABS: BASOPHILS % (AUTO) 1 % (0-1); EOSINOPHILS % (AUTO) 5 % (1-7); LYMPHOCYTES % (AUTO) 11 % (22-44); MEAN CORPUSCULAR HEMOGLOBIN 31.7 pg (27.0-34.8); MEAN PLATELET VOLUME 8.5 fL (7.4-10.4); MONOCYTES % (AUTO) 9 % (2-9); NEUTROPHILS % (AUTO) 74 % (42-75); PLATELET COUNT 274 x10^3/uL (130-400); RED BLOOD COUNT 2.99 x10^6/uL (3.82-5.3); RED CELL DISTRIBUTION WIDTH 16.2 % (9.6-15.2)
[2021-01-31 05:42] LABS: MD NO
[2021-01-31 05:49] LABS: ANION GAP 0 mmol/L (5-15); CHLORIDE 99 mmol/L (98-107)
[2021-01-31 05:50] LABS: CALCIUM 8.5 mg/dL (8.5-10.1); CREATININE 0.37 mg/dL (0.55-1.02)
[2021-01-31 07:34] VITALS: BP 97/65
[2021-01-31] MEDS: FLUTICASONE/VILANTEROL 100-25MCG/INH INH SCH (08:30)
[2021-01-31] MEDS: ALBUTEROL-IPRATROPIUM MDI INH INH SCH ×3 (08:30→20:14)
[2021-01-31] MEDS: THIAMINE 100MG TABLET PO SCH (11:32)
[2021-01-31] MEDS: POLYETHYLENE GLYCOL 17 GM PACKET PO SCH (11:32)
[2021-01-31] MEDS: FAMOTIDINE 20 MG TABLET PO SCH (11:32)
[2021-01-31] MEDS: MAGNESIUM OXIDE 400 MG TABLET PO SCH ×2 (11:32→21:36)
[2021-01-31] MEDS: K-PHOS NEUTRAL 250MG TAB PO SCH ×2 (11:32→21:37)
[2021-01-31] MEDS: OXYcodone/APAP 5/325MG TABLET NG PRN ×2 (11:33→21:37)
[2021-01-31 13:15] VITALS: BP 95/67
[2021-01-31] MEDS: ERTAPENEM 1 GM in SODIUM CHLORIDE 0.9% 50 ML IV SCH (17:12)
[2021-01-31] MEDS: ENOXAPARIN 40 MG/0.4 ML SQ SCH (17:13)
[2021-01-31] MEDS: FENTANYL 12 MCG PATCH TD SCH (17:13)
[2021-01-31 19:16] VITALS: BP 102/69
[2021-02-01 01:50] VITALS: BP 102/63
[2021-02-01] MEDS: LEVOTHYROXINE 100 MCG TABLET PO SCH (05:39)
[2021-02-01 06:06] LABS: BASOPHILS % (AUTO) 1 % (0-1); EOSINOPHILS % (AUTO) 6 % (1-7); LYMPHOCYTES % (AUTO) 12 % (22-44); MEAN CORPUSCULAR HEMOGLOBIN 32.4 pg (27.0-34.8); MEAN CORPUSCULAR HGB CONC 33.2 g/dL (32.4-35.8); MEAN PLATELET VOLUME 8.2 fL (7.4-10.4); MONOCYTES % (AUTO) 11 % (2-9); NEUTROPHILS % (AUTO) 71 % (42-75); PLATELET COUNT 262 x10^3/uL (130-400); RED BLOOD COUNT 2.88 x10^6/uL (3.82-5.3); RED CELL DISTRIBUTION WIDTH 16.5 % (9.6-15.2)
[2021-02-01 06:07] LABS: MD NO
[2021-02-01 06:10] LABS: ANION GAP 0 mmol/L (5-15); CALCIUM 8.4 mg/dL (8.5-10.1); CHLORIDE 99 mmol/L (98-107); CREATININE 0.22 mg/dL (0.55-1.02)
[2021-02-01 07:09] VITALS: BP 92/60
[2021-02-01] MEDS: ALBUTEROL-IPRATROPIUM MDI INH INH SCH ×3 (07:24→19:58)
[2021-02-01] MEDS: FLUTICASONE/VILANTEROL 100-25MCG/INH INH SCH (07:24)
[2021-02-01] MEDS: MAGNESIUM OXIDE 400 MG TABLET PO SCH ×2 (10:09→21:08)
[2021-02-01] MEDS: THIAMINE 100MG TABLET PO SCH (10:09)
[2021-02-01] MEDS: FAMOTIDINE 20 MG TABLET PO SCH (10:09)
[2021-02-01] MEDS: POLYETHYLENE GLYCOL 17 GM PACKET PO SCH (10:09)
[2021-02-01] MEDS: K-PHOS NEUTRAL 250MG TAB PO SCH ×2 (10:10→21:08)
[2021-02-01] MEDS: OXYcodone/APAP 5/325MG TABLET NG PRN ×2 (10:10→16:35)
[2021-02-01 11:37] VITALS: BP 81/53
[2021-02-01 11:44] VITALS: BP 95/64
[2021-02-01] MEDS: ENOXAPARIN 40 MG/0.4 ML SQ SCH (16:35)
[2021-02-01] MEDS: ERTAPENEM 1 GM in SODIUM CHLORIDE 0.9% 50 ML IV SCH (16:35)
[2021-02-01 19:47] VITALS: BP 90/61
[2021-02-02] VITALS (7 sets, daily range): BP systolic 88–107; BP diastolic 50–75
[2021-02-02] MEDS: OXYcodone/APAP 5/325MG TABLET NG PRN ×3 (03:01→17:34)
[2021-02-02] MEDS: LEVOTHYROXINE 100 MCG TABLET PO SCH (05:32)
[2021-02-02 06:05] LABS: BASOPHILS % (AUTO) 1 % (0-1); EOSINOPHILS % (AUTO) 6 % (1-7); LYMPHOCYTES % (AUTO) 14 % (22-44); MEAN CORPUSCULAR HEMOGLOBIN 32.1 pg (27.0-34.8); MEAN CORPUSCULAR HGB CONC 32.9 g/dL (32.4-35.8); MEAN PLATELET VOLUME 8.4 fL (7.4-10.4); MONOCYTES % (AUTO) 13 % (2-9); NEUTROPHILS % (AUTO) 66 % (42-75); PLATELET COUNT 259 x10^3/uL (130-400); RED BLOOD COUNT 2.89 x10^6/uL (3.82-5.3); RED CELL DISTRIBUTION WIDTH 16.3 % (9.6-15.2)
[2021-02-02 06:07] LABS: MD NO
[2021-02-02 06:17] LABS: ANION GAP 2 mmol/L (5-15); CALCIUM 8.2 mg/dL (8.5-10.1); CHLORIDE 98 mmol/L (98-107); CREATININE 0.27 mg/dL (0.55-1.02)
[2021-02-02] MEDS: FLUTICASONE/VILANTEROL 100-25MCG/INH INH SCH (07:53)
[2021-02-02] MEDS: ALBUTEROL-IPRATROPIUM MDI INH INH SCH ×3 (07:53→19:00)
[2021-02-02] MEDS: POLYETHYLENE GLYCOL 17 GM PACKET PO SCH (08:30)
[2021-02-02] MEDS: FAMOTIDINE 20 MG TABLET PO SCH (08:31)
[2021-02-02] MEDS: THIAMINE 100MG TABLET PO SCH (08:31)
[2021-02-02] MEDS: K-PHOS NEUTRAL 250MG TAB PO SCH ×2 (08:31→19:52)
[2021-02-02] MEDS: MAGNESIUM OXIDE 400 MG TABLET PO SCH ×2 (08:31→19:52)
[2021-02-02] MEDS: ENOXAPARIN 40 MG/0.4 ML SQ SCH (16:41)
[2021-02-02] MEDS: ERTAPENEM 1 GM in SODIUM CHLORIDE 0.9% 50 ML IV SCH (16:41)
[2021-02-03] MEDS: LEVOTHYROXINE 100 MCG TABLET PO SCH (05:05)
[2021-02-03] MEDS: OXYcodone/APAP 5/325MG TABLET NG PRN ×2 (05:05→11:57)
[2021-02-03 05:38] LABS: BASOPHILS % (AUTO) 1 % (0-1); EOSINOPHILS % (AUTO) 7 % (1-7); LYMPHOCYTES % (AUTO) 16 % (22-44); MEAN CORPUSCULAR HEMOGLOBIN 31.9 pg (27.0-34.8); MEAN CORPUSCULAR HGB CONC 32.8 g/dL (32.4-35.8); MEAN PLATELET VOLUME 8.4 fL (7.4-10.4); MONOCYTES % (AUTO) 12 % (2-9); NEUTROPHILS % (AUTO) 64 % (42-75); PLATELET COUNT 237 x10^3/uL (130-400); RED BLOOD COUNT 2.56 x10^6/uL (3.82-5.3); RED CELL DISTRIBUTION WIDTH 16.4 % (9.6-15.2)
[2021-02-03 05:44] LABS: MD NO
[2021-02-03 05:48] LABS: ANION GAP 1 mmol/L (5-15); CHLORIDE 98 mmol/L (98-107); CREATININE 0.23 mg/dL (0.55-1.02)
[2021-02-03 06:21] VITALS: BP 99/65
[2021-02-03] MEDS: FAMOTIDINE 20 MG TABLET PO SCH (08:08)
[2021-02-03] MEDS: MAGNESIUM OXIDE 400 MG TABLET PO SCH ×2 (08:08→20:00)
[2021-02-03] MEDS: THIAMINE 100MG TABLET PO SCH (08:08)
[2021-02-03] MEDS: K-PHOS NEUTRAL 250MG TAB PO SCH ×2 (08:08→20:00)
[2021-02-03] MEDS: POLYETHYLENE GLYCOL 17 GM PACKET PO SCH (08:09)
[2021-02-03] MEDS: ALBUTEROL-IPRATROPIUM MDI INH INH SCH ×3 (09:00→16:00)
[2021-02-03] MEDS: FLUTICASONE/VILANTEROL 100-25MCG/INH INH SCH (09:00)
[2021-02-03 12:23] VITALS: BP 101/67
[2021-02-03] MEDS: ENOXAPARIN 40 MG/0.4 ML SQ SCH (16:55)
[2021-02-03] MEDS: FENTANYL 12 MCG PATCH TD SCH (16:59)
[2021-02-03] MEDS: ERTAPENEM 1 GM in SODIUM CHLORIDE 0.9% 50 ML IV SCH (17:07)
[2021-02-03] MEDS ORDERED: OXYcodone/APAP 5/325MG TABLET ONE (19:52)
[2021-02-03 19:57] VITALS: BP 103/69
[2021-02-03] MEDS: OXYcodone/APAP 5/325MG TABLET PO PRN (19:59)
[2021-02-03] MEDS: ALBUTEROL/IPRATROPIUM 2.5MG/0.5MG, 3 ML HHN PRN ×2 (20:00→21:36)
[2021-02-04 01:22] VITALS: BP 104/68
[2021-02-04] MEDS: LEVOTHYROXINE 100 MCG TABLET PO SCH (05:45)
[2021-02-04] MEDS: OXYcodone/APAP 5/325MG TABLET PO PRN ×2 (05:46→22:12)
[2021-02-04 06:08] LABS: BASOPHILS % (AUTO) 1 % (0-1); EOSINOPHILS % (AUTO) 8 % (1-7); LYMPHOCYTES % (AUTO) 18 % (22-44); MEAN CORPUSCULAR HEMOGLOBIN 31.9 pg (27.0-34.8); MEAN CORPUSCULAR HGB CONC 32.7 g/dL (32.4-35.8); MEAN PLATELET VOLUME 8.3 fL (7.4-10.4); MONOCYTES % (AUTO) 12 % (2-9); NEUTROPHILS % (AUTO) 61 % (42-75); PLATELET COUNT 245 x10^3/uL (130-400); RED CELL DISTRIBUTION WIDTH 16.5 % (9.6-15.2)
[2021-02-04 06:10] LABS: MD NO
[2021-02-04 06:20] LABS: ANION GAP 2 mmol/L (5-15); CALCIUM 8.8 mg/dL (8.5-10.1); CHLORIDE 99 mmol/L (98-107); CREATININE 0.22 mg/dL (0.55-1.02)
[2021-02-04 07:35] VITALS: BP 97/65
[2021-02-04] MEDS: POLYETHYLENE GLYCOL 17 GM PACKET PO SCH (09:00)
[2021-02-04] MEDS: FAMOTIDINE 20 MG TABLET PO SCH (09:05)
[2021-02-04] MEDS: K-PHOS NEUTRAL 250MG TAB PO SCH ×2 (09:05→21:43)
[2021-02-04] MEDS: MAGNESIUM OXIDE 400 MG TABLET PO SCH ×2 (09:05→21:43)
[2021-02-04] MEDS: THIAMINE 100MG TABLET PO SCH (09:05)
[2021-02-04] MEDS: FLUTICASONE/VILANTEROL 100-25MCG/INH INH SCH (09:48)
[2021-02-04] MEDS: ALBUTEROL-IPRATROPIUM MDI INH INH SCH ×3 (09:48→20:05)
[2021-02-04 13:29] VITALS: BP 95/62
[2021-02-04] MEDS: ENOXAPARIN 40 MG/0.4 ML SQ SCH (16:03)
[2021-02-04] MEDS: ERTAPENEM 1 GM in SODIUM CHLORIDE 0.9% 50 ML IV SCH (16:04)
[2021-02-04 19:30] VITALS: BP 92/61
[2021-02-05 00:27] VITALS: BP 119/79
[2021-02-05 06:17] LABS: BASOPHILS % (AUTO) 1 % (0-1); EOSINOPHILS % (AUTO) 7 % (1-7); LYMPHOCYTES % (AUTO) 18 % (22-44); MEAN CORPUSCULAR HEMOGLOBIN 32.4 pg (27.0-34.8); MEAN CORPUSCULAR HGB CONC 33.1 g/dL (32.4-35.8); MEAN PLATELET VOLUME 8.9 fL (7.4-10.4); MONOCYTES % (AUTO) 10 % (2-9); NEUTROPHILS % (AUTO) 64 % (42-75); PLATELET COUNT 253 x10^3/uL (130-400); RED BLOOD COUNT 2.92 x10^6/uL (3.82-5.3); RED CELL DISTRIBUTION WIDTH 16.2 % (9.6-15.2)
[2021-02-05] MEDS: LEVOTHYROXINE 100 MCG TABLET PO SCH (06:17)
[2021-02-05 06:21] LABS: MD NO
[2021-02-05 06:31] LABS: CHLORIDE 98 mmol/L (98-107)
[2021-02-05 06:36] LABS: ANION GAP 2 mmol/L (5-15); CALCIUM 8.6 mg/dL (8.5-10.1); CREATININE 0.25 mg/dL (0.55-1.02)
[2021-02-05 07:20] VITALS: BP 98/63
[2021-02-05] MEDS: OXYcodone/APAP 5/325MG TABLET PO PRN ×2 (08:29→14:21)
[2021-02-05] MEDS: FAMOTIDINE 20 MG TABLET PO SCH (08:29)
[2021-02-05] MEDS: POLYETHYLENE GLYCOL 17 GM PACKET PO SCH (08:30)
[2021-02-05] MEDS: THIAMINE 100MG TABLET PO SCH (08:30)
[2021-02-05] MEDS: MAGNESIUM OXIDE 400 MG TABLET PO SCH ×2 (08:30→20:34)
[2021-02-05] MEDS: K-PHOS NEUTRAL 250MG TAB PO SCH ×2 (08:30→20:34)
[2021-02-05] MEDS: FLUTICASONE/VILANTEROL 100-25MCG/INH INH SCH (10:50)
[2021-02-05] MEDS: ALBUTEROL-IPRATROPIUM MDI INH INH SCH ×3 (10:50→21:10)
[2021-02-05 12:12] VITALS: BP 89/50
[2021-02-05] MEDS: ENOXAPARIN 40 MG/0.4 ML SQ SCH (16:32)
[2021-02-05] MEDS: ERTAPENEM 1 GM in SODIUM CHLORIDE 0.9% 50 ML IV SCH (16:32)
[2021-02-05 18:41] VITALS: BP 109/76
[2021-02-06 00:48] VITALS: BP 99/65
[2021-02-06] MEDS: OXYcodone/APAP 5/325MG TABLET PO PRN ×3 (00:58→14:49)
[2021-02-06] MEDS: LEVOTHYROXINE 100 MCG TABLET PO SCH (05:09)
[2021-02-06 05:39] LABS: BASOPHILS % (AUTO) 1 % (0-1); EOSINOPHILS % (AUTO) 8 % (1-7); LYMPHOCYTES % (AUTO) 19 % (22-44); MEAN CORPUSCULAR HEMOGLOBIN 32.3 pg (27.0-34.8); MEAN CORPUSCULAR HGB CONC 33.1 g/dL (32.4-35.8); MEAN PLATELET VOLUME 8.5 fL (7.4-10.4); MONOCYTES % (AUTO) 11 % (2-9); NEUTROPHILS % (AUTO) 62 % (42-75); PLATELET COUNT 268 x10^3/uL (130-400); RED BLOOD COUNT 3.02 x10^6/uL (3.82-5.3); RED CELL DISTRIBUTION WIDTH 16.5 % (9.6-15.2)
[2021-02-06 05:40] LABS: MD NO
[2021-02-06 05:51] LABS: CALCIUM 8.9 mg/dL (8.5-10.1); CHLORIDE 99 mmol/L (98-107)
[2021-02-06 05:52] LABS: CREATININE 0.23 mg/dL (0.55-1.02)
[2021-02-06 06:10] LABS: ANION GAP 0 mmol/L (5-15)
[2021-02-06 07:18] VITALS: BP 97/63
[2021-02-06] MEDS: POLYETHYLENE GLYCOL 17 GM PACKET PO SCH (08:02)
[2021-02-06] MEDS: MAGNESIUM OXIDE 400 MG TABLET PO SCH ×2 (08:10→21:46)
[2021-02-06] MEDS: FAMOTIDINE 20 MG TABLET PO SCH (08:10)
[2021-02-06] MEDS: K-PHOS NEUTRAL 250MG TAB PO SCH ×2 (08:10→21:46)
[2021-02-06] MEDS: THIAMINE 100MG TABLET PO SCH (08:10)
[2021-02-06] MEDS: FLUTICASONE/VILANTEROL 100-25MCG/INH INH SCH (08:27)
[2021-02-06] MEDS: ALBUTEROL-IPRATROPIUM MDI INH INH SCH ×3 (08:27→18:05)
[2021-02-06 14:26] VITALS: BP 100/66
[2021-02-06] MEDS ORDERED: LORazepam 0.5MG TABLET ONE (14:41)
[2021-02-06] MEDS: LORazepam 0.5MG TABLET PO PRN (14:49)
[2021-02-06] MEDS: FENTANYL 12 MCG PATCH TD SCH (16:30)
[2021-02-06] MEDS ORDERED: ASCO100018 PO (16:51)
[2021-02-06] MEDS ORDERED: CHOL10003 PO (16:51)
[2021-02-06] MEDS ORDERED: [UNRECOGNIZED DRUG - CODE] SQ (16:51)
[2021-02-06] MEDS ORDERED: ADAL40KI SQ (16:51)
[2021-02-06] MEDS: ENOXAPARIN 40 MG/0.4 ML SQ SCH (17:30)
[2021-02-06] MEDS: ERTAPENEM 1 GM in SODIUM CHLORIDE 0.9% 50 ML IV SCH (17:31)
[2021-02-06 19:30] VITALS: BP 104/73
[2021-02-07 00:12] VITALS: BP 110/67
[2021-02-07] MEDS: LEVOTHYROXINE 100 MCG TABLET PO SCH (05:27)
[2021-02-07 06:06] LABS: BASOPHILS % (AUTO) 1 % (0-1); EOSINOPHILS % (AUTO) 8 % (1-7); LYMPHOCYTES % (AUTO) 17 % (22-44); MEAN CORPUSCULAR HEMOGLOBIN 31.7 pg (27.0-34.8); MEAN CORPUSCULAR HGB CONC 32.7 g/dL (32.4-35.8); MEAN PLATELET VOLUME 8.9 fL (7.4-10.4); MONOCYTES % (AUTO) 11 % (2-9); NEUTROPHILS % (AUTO) 63 % (42-75); PLATELET COUNT 280 x10^3/uL (130-400); RED BLOOD COUNT 2.95 x10^6/uL (3.82-5.3); RED CELL DISTRIBUTION WIDTH 16.2 % (9.6-15.2)
[2021-02-07 06:07] LABS: MD NO
[2021-02-07 06:13] LABS: ANION GAP 2 mmol/L (5-15); CALCIUM 8.5 mg/dL (8.5-10.1); CHLORIDE 99 mmol/L (98-107); CREATININE 0.28 mg/dL (0.55-1.02)
[2021-02-07] MEDS: FLUTICASONE/VILANTEROL 100-25MCG/INH INH SCH (07:10)
[2021-02-07] MEDS: ALBUTEROL-IPRATROPIUM MDI INH INH SCH ×3 (07:10→21:00)
[2021-02-07 08:55] VITALS: BP 104/71
[2021-02-07] MEDS: POLYETHYLENE GLYCOL 17 GM PACKET PO SCH (09:00)
[2021-02-07] MEDS: K-PHOS NEUTRAL 250MG TAB PO SCH ×2 (10:42→21:45)
[2021-02-07] MEDS: THIAMINE 100MG TABLET PO SCH (10:42)
[2021-02-07] MEDS: FAMOTIDINE 20 MG TABLET PO SCH (10:42)
[2021-02-07] MEDS: MAGNESIUM OXIDE 400 MG TABLET PO SCH ×2 (10:42→21:45)
[2021-02-07] MEDS: OXYcodone/APAP 5/325MG TABLET PO PRN ×3 (10:43→22:56)
[2021-02-07 14:31] VITALS: BP 100/66
[2021-02-07] MEDS: ENOXAPARIN 40 MG/0.4 ML SQ SCH (16:48)
[2021-02-07] MEDS: ERTAPENEM 1 GM in SODIUM CHLORIDE 0.9% 50 ML IV SCH (16:48)
[2021-02-07 18:42] VITALS: BP 103/70
[2021-02-07 19:02] LABS: MICROSCOPIC INDICATED
[2021-02-08 01:30] VITALS: BP 96/63
[2021-02-08 05:12] LABS: BASOPHILS % (AUTO) 1 % (0-1); EOSINOPHILS % (AUTO) 8 % (1-7); LYMPHOCYTES % (AUTO) 16 % (22-44); MD NO; MEAN CORPUSCULAR HEMOGLOBIN 32.7 pg (27.0-34.8); MEAN CORPUSCULAR HGB CONC 33.5 g/dL (32.4-35.8); MEAN PLATELET VOLUME 8.7 fL (7.4-10.4); MONOCYTES % (AUTO) 12 % (2-9); NEUTROPHILS % (AUTO) 64 % (42-75); PLATELET COUNT 265 x10^3/uL (130-400); RED BLOOD COUNT 2.85 x10^6/uL (3.82-5.3); RED CELL DISTRIBUTION WIDTH 16.3 % (9.6-15.2)
[2021-02-08 05:19] LABS: ANION GAP 3 mmol/L (5-15); CALCIUM 8.4 mg/dL (8.5-10.1); CHLORIDE 100 mmol/L (98-107); CREATININE 0.22 mg/dL (0.55-1.02)
[2021-02-08] MEDS: LEVOTHYROXINE 100 MCG TABLET PO SCH (06:00)
[2021-02-08] MEDS: FLUTICASONE/VILANTEROL 100-25MCG/INH INH SCH (07:05)
[2021-02-08] MEDS: ALBUTEROL/IPRATROPIUM 2.5MG/0.5MG, 3 ML HHN SCH ×3 (07:05→21:00)
[2021-02-08 07:48] VITALS: BP 95/63
[2021-02-08] MEDS: POLYETHYLENE GLYCOL 17 GM PACKET PO SCH (09:00)
[2021-02-08] MEDS: MAGNESIUM OXIDE 400 MG TABLET PO SCH ×2 (09:45→21:03)
[2021-02-08] MEDS: THIAMINE 100MG TABLET PO SCH (09:45)
[2021-02-08] MEDS: K-PHOS NEUTRAL 250MG TAB PO SCH ×2 (09:45→21:03)
[2021-02-08] MEDS: FAMOTIDINE 20 MG TABLET PO SCH (09:45)
[2021-02-08] MEDS: OXYcodone/APAP 5/325MG TABLET PO PRN ×2 (09:45→15:52)
[2021-02-08 12:03] VITALS: BP 107/72
[2021-02-08] MEDS: LORazepam 0.5MG TABLET PO PRN (13:35)
[2021-02-08] MEDS: ERTAPENEM 1 GM in SODIUM CHLORIDE 0.9% 50 ML IV SCH (16:01)
[2021-02-08] MEDS: ENOXAPARIN 40 MG/0.4 ML SQ SCH (17:30)
[2021-02-08 19:47] VITALS: BP 109/70
[2021-02-08] MEDS: BUDESONIDE 0.5 MG/2 ML INHA INH SCH (21:00)
[2021-02-09] MEDS: OXYcodone/APAP 5/325MG TABLET PO PRN ×2 (01:59→10:48)
[2021-02-09 02:08] VITALS: BP 107/64
[2021-02-09] MEDS: LEVOTHYROXINE 100 MCG TABLET PO SCH (05:14)
[2021-02-09 05:23] LABS: BASOPHILS % (AUTO) 1 % (0-1); EOSINOPHILS % (AUTO) 6 % (1-7); LYMPHOCYTES % (AUTO) 12 % (22-44); MEAN CORPUSCULAR HEMOGLOBIN 32.3 pg (27.0-34.8); MEAN CORPUSCULAR HGB CONC 33.1 g/dL (32.4-35.8); MEAN PLATELET VOLUME 8.8 fL (7.4-10.4); MONOCYTES % (AUTO) 11 % (2-9); NEUTROPHILS % (AUTO) 70 % (42-75); PLATELET COUNT 283 x10^3/uL (130-400); RED BLOOD COUNT 2.83 x10^6/uL (3.82-5.3); RED CELL DISTRIBUTION WIDTH 16.5 % (9.6-15.2)
[2021-02-09 05:25] LABS: MD NO
[2021-02-09 05:33] LABS: CALCIUM 8.6 mg/dL (8.5-10.1); CHLORIDE 100 mmol/L (98-107); CREATININE 0.27 mg/dL (0.55-1.02)
[2021-02-09 05:42] LABS: ANION GAP 3 mmol/L (5-15)
[2021-02-09 07:32] VITALS: BP 97/63
[2021-02-09] MEDS: POLYETHYLENE GLYCOL 17 GM PACKET PO SCH (09:00)
[2021-02-09] MEDS: ALBUTEROL/IPRATROPIUM 2.5MG/0.5MG, 3 ML HHN SCH (09:00)
[2021-02-09] MEDS: BUDESONIDE 0.5 MG/2 ML INHA INH SCH ×2 (09:00→21:00)
[2021-02-09] MEDS ORDERED: ALBUTEROL/IPRATROPIUM 2.5MG/0.5MG, 3 ML HHN PRN (10:00)
[2021-02-09] MEDS: LORazepam 0.5MG TABLET PO PRN (10:02)
[2021-02-09] MEDS: MAGNESIUM OXIDE 400 MG TABLET PO SCH ×2 (10:06→20:51)
[2021-02-09] MEDS: FAMOTIDINE 20 MG TABLET PO SCH (10:06)
[2021-02-09] MEDS: THIAMINE 100MG TABLET PO SCH (10:06)
[2021-02-09] MEDS: K-PHOS NEUTRAL 250MG TAB PO SCH ×2 (10:06→20:51)
[2021-02-09 10:07] VITALS: BP 97/64
[2021-02-09 10:45] VITALS: BP 97/65
[2021-02-09 12:11] VITALS: BP 103/72
[2021-02-09] MEDS: ALBUTEROL-IPRATROPIUM MDI INH INH SCH ×2 (14:35→21:00)
[2021-02-09] MEDS: ERTAPENEM 1 GM in SODIUM CHLORIDE 0.9% 50 ML IV SCH (17:05)
[2021-02-09] MEDS: FENTANYL 12 MCG PATCH TD SCH (17:07)
[2021-02-09] MEDS: ENOXAPARIN 40 MG/0.4 ML SQ SCH (17:08)
[2021-02-09 20:00] VITALS: BP 107/71
[2021-02-10 04:00] VITALS: BP 107/69
[2021-02-10] MEDS: LEVOTHYROXINE 100 MCG TABLET PO SCH (05:30)
[2021-02-10] MEDS: OXYcodone/APAP 5/325MG TABLET PO PRN ×2 (05:31→20:31)
[2021-02-10 06:10] LABS: BASOPHILS % (AUTO) 1 % (0-1); EOSINOPHILS % (AUTO) 5 % (1-7); LYMPHOCYTES % (AUTO) 13 % (22-44); MD NO; MEAN CORPUSCULAR HEMOGLOBIN 31.9 pg (27.0-34.8); MEAN CORPUSCULAR HGB CONC 32.5 g/dL (32.4-35.8); MEAN PLATELET VOLUME 8.8 fL (7.4-10.4); MONOCYTES % (AUTO) 12 % (2-9); NEUTROPHILS % (AUTO) 69 % (42-75); PLATELET COUNT 337 x10^3/uL (130-400); RED BLOOD COUNT 3.04 x10^6/uL (3.82-5.3); RED CELL DISTRIBUTION WIDTH 16.1 % (9.6-15.2)
[2021-02-10 06:11] LABS: ANION GAP 1 mmol/L (5-15); CALCIUM 8.7 mg/dL (8.5-10.1); CHLORIDE 98 mmol/L (98-107)
[2021-02-10 06:12] LABS: CREATININE 0.27 mg/dL (0.55-1.02)
[2021-02-10 06:19] VITALS: BP 110/69
[2021-02-10] MEDS: ALBUTEROL-IPRATROPIUM MDI INH INH SCH (07:47)
[2021-02-10] MEDS: BUDESONIDE 0.5 MG/2 ML INHA INH SCH ×2 (07:47→19:15)
[2021-02-10] MEDS: POLYETHYLENE GLYCOL 17 GM PACKET PO SCH (08:11)
[2021-02-10] MEDS: FAMOTIDINE 20 MG TABLET PO SCH (08:11)
[2021-02-10] MEDS: THIAMINE 100MG TABLET PO SCH (08:11)
[2021-02-10] MEDS: K-PHOS NEUTRAL 250MG TAB PO SCH ×2 (08:11→20:31)
[2021-02-10] MEDS: MAGNESIUM OXIDE 400 MG TABLET PO SCH ×2 (08:11→20:31)
[2021-02-10 11:59] VITALS: BP 93/62
[2021-02-10 13:28] VITALS: BP 103/68
[2021-02-10] MEDS: ALBUTEROL/IPRATROPIUM 2.5MG/0.5MG, 3 ML NPPB SCH ×3 (15:00→21:00)
[2021-02-10] MEDS ORDERED: LORazepam 0.5MG TABLET PO PRN (15:30)
[2021-02-10] MEDS: ERTAPENEM 1 GM in SODIUM CHLORIDE 0.9% 50 ML IV SCH (17:15)
[2021-02-10] MEDS: ENOXAPARIN 40 MG/0.4 ML SQ SCH (17:30)
[2021-02-10 19:00] VITALS: BP 112/79
[2021-02-11 03:30] VITALS: BP 101/68
[2021-02-11] MEDS: OXYcodone/APAP 5/325MG TABLET PO PRN ×3 (04:02→20:11)
[2021-02-11] MEDS: LEVOTHYROXINE 100 MCG TABLET PO SCH (05:13)
[2021-02-11 05:37] LABS: BASOPHILS % (AUTO) 1 % (0-1); EOSINOPHILS % (AUTO) 6 % (1-7); LYMPHOCYTES % (AUTO) 15 % (22-44); MEAN CORPUSCULAR HEMOGLOBIN 32.2 pg (27.0-34.8); MEAN CORPUSCULAR HGB CONC 33.2 g/dL (32.4-35.8); MEAN PLATELET VOLUME 9.4 fL (7.4-10.4); MONOCYTES % (AUTO) 12 % (2-9); NEUTROPHILS % (AUTO) 66 % (42-75); PLATELET COUNT 340 x10^3/uL (130-400); RED BLOOD COUNT 2.99 x10^6/uL (3.82-5.3); RED CELL DISTRIBUTION WIDTH 15.9 % (9.6-15.2)
[2021-02-11 05:39] LABS: MD NO
[2021-02-11 05:50] LABS: CALCIUM 8.4 mg/dL (8.5-10.1); CREATININE 0.19 mg/dL (0.55-1.02)
[2021-02-11 05:57] LABS: ANION GAP 2 mmol/L (5-15); CHLORIDE 99 mmol/L (98-107)
[2021-02-11] MEDS: BUDESONIDE 0.5 MG/2 ML INHA INH SCH ×2 (07:34→20:00)
[2021-02-11] MEDS: ALBUTEROL/IPRATROPIUM 2.5MG/0.5MG, 3 ML NPPB SCH ×3 (07:34→20:00)
[2021-02-11 07:46] VITALS: BP 106/71
[2021-02-11] MEDS: POLYETHYLENE GLYCOL 17 GM PACKET PO SCH (09:00)
[2021-02-11] MEDS: THIAMINE 100MG TABLET PO SCH (09:39)
[2021-02-11] MEDS: MAGNESIUM OXIDE 400 MG TABLET PO SCH ×2 (09:39→20:12)
[2021-02-11] MEDS: FAMOTIDINE 20 MG TABLET PO SCH (09:39)
[2021-02-11] MEDS: K-PHOS NEUTRAL 250MG TAB PO SCH ×2 (09:39→20:12)
[2021-02-11 12:14] VITALS: BP 106/70
[2021-02-11] MEDS: ERTAPENEM 1 GM in SODIUM CHLORIDE 0.9% 50 ML IV SCH (16:33)
[2021-02-11] MEDS: ENOXAPARIN 40 MG/0.4 ML SQ SCH (16:39)
[2021-02-11 19:19] VITALS: BP 100/65
[2021-02-12 01:06] VITALS: BP 98/60
[2021-02-12] MEDS: LEVOTHYROXINE 100 MCG TABLET PO SCH (05:01)
[2021-02-12] MEDS: OXYcodone/APAP 5/325MG TABLET PO PRN ×3 (05:02→21:03)
[2021-02-12 05:28] LABS: BASOPHILS % (AUTO) 1 % (0-1); EOSINOPHILS % (AUTO) 7 % (1-7); LYMPHOCYTES % (AUTO) 18 % (22-44); MEAN CORPUSCULAR HEMOGLOBIN 32.1 pg (27.0-34.8); MEAN CORPUSCULAR HGB CONC 32.6 g/dL (32.4-35.8); MEAN PLATELET VOLUME 9.2 fL (7.4-10.4); MONOCYTES % (AUTO) 13 % (2-9); NEUTROPHILS % (AUTO) 61 % (42-75); PLATELET COUNT 388 x10^3/uL (130-400); RED BLOOD COUNT 3.11 x10^6/uL (3.82-5.3); RED CELL DISTRIBUTION WIDTH 15.7 % (9.6-15.2)
[2021-02-12 05:42] LABS: CALCIUM 9.2 mg/dL (8.5-10.1)
[2021-02-12 05:44] LABS: CREATININE 0.24 mg/dL (0.55-1.02)
[2021-02-12 05:52] LABS: ANION GAP 1 mmol/L (5-15); CHLORIDE 98 mmol/L (98-107)
[2021-02-12 06:13] LABS: MD SCAN
[2021-02-12 07:42] VITALS: BP 127/86
[2021-02-12] MEDS: ALBUTEROL/IPRATROPIUM 2.5MG/0.5MG, 3 ML NPPB SCH ×3 (09:12→19:32)
[2021-02-12] MEDS: BUDESONIDE 0.5 MG/2 ML INHA INH SCH ×2 (09:12→19:32)
[2021-02-12] MEDS: THIAMINE 100MG TABLET PO SCH (09:26)
[2021-02-12] MEDS: FAMOTIDINE 20 MG TABLET PO SCH (09:26)
[2021-02-12] MEDS: K-PHOS NEUTRAL 250MG TAB PO SCH ×2 (09:26→21:02)
[2021-02-12] MEDS: MAGNESIUM OXIDE 400 MG TABLET PO SCH ×2 (09:26→21:02)
[2021-02-12] MEDS: POLYETHYLENE GLYCOL 17 GM PACKET PO SCH (09:29)
[2021-02-12 12:02] VITALS: BP 104/72
[2021-02-12] MEDS: FENTANYL 12 MCG PATCH TD SCH (16:22)
[2021-02-12] MEDS: ERTAPENEM 1 GM in SODIUM CHLORIDE 0.9% 50 ML IV SCH (16:22)
[2021-02-12] MEDS: ENOXAPARIN 40 MG/0.4 ML SQ SCH (16:23)
[2021-02-12 18:32] VITALS: BP 99/64
[2021-02-13 01:51] VITALS: BP 95/67
[2021-02-13] MEDS: OXYcodone/APAP 5/325MG TABLET PO PRN ×2 (03:56→09:58)
[2021-02-13 04:58] LABS: BASOPHILS % (AUTO) 1 % (0-1); EOSINOPHILS % (AUTO) 6 % (1-7); LYMPHOCYTES % (AUTO) 17 % (22-44); MD NO; MEAN CORPUSCULAR HGB CONC 32.7 g/dL (32.4-35.8); MEAN PLATELET VOLUME 8.9 fL (7.4-10.4); MONOCYTES % (AUTO) 15 % (2-9); NEUTROPHILS % (AUTO) 60 % (42-75); PLATELET COUNT 401 x10^3/uL (130-400); RED BLOOD COUNT 3.04 x10^6/uL (3.82-5.3); RED CELL DISTRIBUTION WIDTH 15.2 % (9.6-15.2)
[2021-02-13 05:09] LABS: ANION GAP 2 mmol/L (5-15); CHLORIDE 97 mmol/L (98-107); CREATININE 0.28 mg/dL (0.55-1.02)
[2021-02-13] MEDS: LEVOTHYROXINE 100 MCG TABLET PO SCH (05:38)
[2021-02-13 07:29] VITALS: BP 98/69
[2021-02-13] MEDS: ALBUTEROL/IPRATROPIUM 2.5MG/0.5MG, 3 ML NPPB SCH ×2 (09:00→14:32)
[2021-02-13] MEDS: BUDESONIDE 0.5 MG/2 ML INHA INH SCH (09:00)
[2021-02-13] MEDS: POLYETHYLENE GLYCOL 17 GM PACKET PO SCH (09:00)
[2021-02-13] MEDS: THIAMINE 100MG TABLET PO SCH (09:52)
[2021-02-13] MEDS: K-PHOS NEUTRAL 250MG TAB PO SCH (09:52)
[2021-02-13] MEDS: MAGNESIUM OXIDE 400 MG TABLET PO SCH (09:52)
[2021-02-13] MEDS: FAMOTIDINE 20 MG TABLET PO SCH (09:53)
[2021-02-13 12:32] VITALS: BP 101/67
[2021-02-13] MEDS ORDERED: POLY17PO5 PO (14:58)
[2021-02-13] MEDS ORDERED: FENT1PAT74 TD (14:58)
[2021-02-13] MEDS ORDERED: LORA-445 PO (14:58)
[2021-02-13] MEDS ORDERED: OXYC1TAB14 PO (14:58)
[2021-02-13] MEDS ORDERED: THIA100T67 PO (14:58)
[2021-02-13] MEDS ORDERED: MAGN400T50 PO (14:58)
[2021-02-13] MEDS ORDERED: PHOS250T PO (14:58)
[2021-02-13] MEDS: ENOXAPARIN 40 MG/0.4 ML SQ SCH (17:30)
== END 2021-02-13 18:00 | DRG 871 ==
LOC: ED 14:00 → EDIP 15:27 → SUATTDRO 15:27 → CCU 16:54 → 4WST 01-19 09:29 → CCU 01-22 07:48 → 4WST 01-23 14:32
PROVIDERS: ADMIT Internal Medicine; ATTEND Family Medicine
PROC: 0BH17EZ Insertion of Endotracheal Airway into Trachea, Via Natural or Artificial Opening (ICD-10-PCS; principal; 2021-01-16)
PROC: 5A1945Z Respiratory Ventilation, 24-96 Consecutive Hours (ICD-10-PCS; 2021-01-16)
PROC: 0T9B30Z Drainage of Bladder with Drainage Device, Percutaneous Approach (ICD-10-PCS; 2021-01-16)
PROC: 02HV33Z Insertion of Infusion Device into Superior Vena Cava, Percutaneous Approach (ICD-10-PCS; 2021-01-19)
PROC: B548ZZA Ultrasonography of Superior Vena Cava, Guidance (ICD-10-PCS; 2021-01-19)
PROC: 0T9B70Z Drainage of Bladder with Drainage Device, Via Natural or Artificial Opening (ICD-10-PCS; 2021-01-22)
PROC: 5A09357 Assistance with Respiratory Ventilation, Less than 24 Consecutive Hours, Continuous Positive Airway Pressure (ICD-10-PCS; 2021-01-22)
DX: A41.9 Sepsis, unspecified organism (principal); L89.94 Pressure ulcer of unspecified site, stage 4; G93.41 Metabolic encephalopathy; J96.21 Acute and chronic respiratory failure with hypoxia; R65.21 Severe sepsis with septic shock; E43 Unspecified severe protein-calorie malnutrition; J11.08 Influenza due to unidentified influenza virus with specified pneumonia; J14 Pneumonia due to Hemophilus influenzae; J96.22 Acute and chronic respiratory failure with hypercapnia; E87.0 Hyperosmolality and hypernatremia; E87.1 Hypo-osmolality and hyponatremia; L03.90 Cellulitis, unspecified; Z99.11 Dependence on respirator [ventilator] status; R64 Cachexia; E87.2 Acidosis; J44.0 Chronic obstructive pulmonary disease with (acute) lower respiratory infection; Z20.822 Contact with and (suspected) exposure to COVID-19; E83.39 Other disorders of phosphorus metabolism; Z51.5 Encounter for palliative care; E87.8 Other disorders of electrolyte and fluid balance, not elsewhere classified; E89.0 Postprocedural hypothyroidism; F17.200 Nicotine dependence, unspecified, uncomplicated; L89.90 Pressure ulcer of unspecified site, unspecified stage; R62.7 Adult failure to thrive; L89.159 Pressure ulcer of sacral region, unspecified stage; L89.309 Pressure ulcer of unspecified buttock, unspecified stage; Z91.14 Patient's other noncompliance with medication regimen; Z91.19 Patient's noncompliance with other medical treatment and regimen; Z98.891 History of uterine scar from previous surgery; Z99.81 Dependence on supplemental oxygen; Z79.899 Other long term (current) drug therapy; Z79.891 Long term (current) use of opiate analgesic; Z79.01 Long term (current) use of anticoagulants
CPT/HCPCS: 36415; 36573; 36600; 70450; 71045; 80048; 80053; 80202; 81001; 82550; 82803; 83605; 83735; 83880; 84100; 84443; 84478; 84484; 85014; 85018; 85025; 85610; 85730; 86850; 86900; 87040; 87070; 87077; 87081; 87186; 87205; 93005; 93922; 94002; 94003; 94150; 94640; 94660; 96374; G0378; J1335; J1650; J2543; J2704; J3370; J3411; J3480; J7120; J7626; U0005; C1751; J0330; J2920; J3475; J7030; J7040; J7512; U0003